=== PATIENT | male | born 1945 | race Caucasian/White ===

== ENCOUNTER 2017-03-18 19:41 | Inpatient (IN) | payer OTHER ==
[~2017-03-18] VITALS: Ht 162.6 cm; Wt 97.5 kg
[~2017-03-18 19:41] MED LIST: LISI10TA2 PO; TAMS-14 PO
[2017-03-18] MEDS ORDERED: CEFEPIME 2GM/50 ML (PMX) 50 ML IVPB STA (21:24)
[2017-03-18] MEDS ORDERED: SODIUM CHLORIDE 0.9% 1L BAG IV* STA (21:24)
[2017-03-18] MEDS ORDERED: VANCOMYCIN 1 GM (PMX) 250 ML IVPB ONE (21:30)
[2017-03-18] MEDS ORDERED: ACETAMINOPHEN 325 MG TAB PO ONE (21:30)
[2017-03-18] MEDS ORDERED: METO50TA16 PO (22:08)
[2017-03-18] MEDS ORDERED: LOSA100T7 PO (22:08)
[2017-03-18] MEDS ORDERED: FINA5TAB4 PO (22:09)
[2017-03-18] MEDS ORDERED: SITA50TA2 PO (22:09)
[2017-03-18] MEDS ORDERED: EZET10TA3 PO (22:09)
--- NOTE | 2017-03-18 22:09 | RADRPT ---
PROCEDURE: Portable chest x-ray. CLINICAL INDICATION: Sepsis. TECHNIQUE: Portable AP view of the chest. COMPARISON: None. FINDINGS: No pulmonary edema or conolidation is identified. The cardiac silhouette is magnified. No pleural effusion is seen. There is no pneumothorax. IMPRESSION: 1. No evidence of acute cardiopulmonary disease. RPTAT: HTAR .Max Briones MD, MD Date Time Electronically viewed and signed by .Max Briones MD, on 03/18/2017 22:09 .R/
[2017-03-18] MEDS ORDERED: ICOS1CAP PO (22:10)
[2017-03-18 22:15] LABS: ADD UMIC YES; UR ASCORBIC ACID NEGATIVE (NEGATIVE); UR BACTERIA FEW /HPF (NONE SEEN); UR BILIRUBIN (Dip) NEGATIVE (NEGATIVE); UR BLOOD (Dip) 1+ mg/dL (NEGATIVE); UR CLARITY CLOUDY (CLEAR); UR COLOR AMBER (YELLOW); UR GLUCOSE (Dip) NEGATIVE (NEGATIVE); UR KETONES (Dip) NEGATIVE (NEGATIVE); UR LEUKOCYTE ESTERASE (Dip) 3+ Leu/ul (NEGATIVE); UR MUCUS FEW /HPF (NONE SEEN); UR NITRITE (Dip) POSITIVE (NEGATIVE); UR RBC 13 /HPF (0-5); UR SPECIFIC GRAVITY (Dip) 1.018 (1.003-1.030); UR TOTAL PROTEIN (Dip) 2+ mg/dl (NEGATIVE); UR UROBILINOGEN (Dip) NEGATIVE (NEGATIVE); UR WBC CLUMPS FEW /HPF (NONE SEEN)
[2017-03-18 22:22] LABS: ABNORMAL IP MESSAGE 1; HEMATOCRIT 41.1 % (42.0-52.0); HEMOGLOBIN 13.9 g/dl (14.0-18.0); MEAN CORPUSCULAR HEMOGLOBIN 30.5 pg (29.0-33.0); MEAN CORPUSCULAR HGB CONC 33.8 g/dl (32.0-37.0); MEAN CORPUSCULAR VOLUME 90.1 fl (82.0-101.0); PLATELET COUNT 134 10^3/UL (140-415); POSITIVE DIFF @See below; RED BLOOD COUNT 4.56 10^6/ul (4.70-6.10); RED CELL DISTRIBUTION WIDTH 14.1 % (11.5-14.5); WHITE BLOOD COUNT 12.3 10^3/ul (4.8-10.8)
[2017-03-18 22:37] LABS: INR 1.05; PARTIAL THROMBOPLASTIN TIME 28.4 Sec (25.0-35.0); PROTIME 13.7 Sec (12.2-14.2); PT RATIO 1.1
[2017-03-18 22:49] LABS: ALANINE AMINOTRANSFERASE 74 IU/L (13-69); ALBUMIN 3.9 g/dl (3.3-4.9); ALKALINE PHOSPHATASE 113 IU/L (42-121); ANION GAP 18 (8-16); ASPARTATE AMINO TRANSFERASE 114 IU/L (15-46); BILIRUBIN,INDIRECT 0.4 mg/dl (0-1.1); BILIRUBIN,TOTAL 0.4 mg/dl (0.2-1.3); BLOOD UREA NITROGEN 32 mg/dl (7-20); CALCIUM 9.2 mg/dl (8.4-10.2); CARBON DIOXIDE 19 mmol/L (21-31); CHLORIDE 112 mmol/L (97-110); CREATININE 2.04 mg/dl (0.61-1.24); GLUCOSE 122 mg/dl (70-220); SODIUM 145 mmol/L (135-144); TOTAL PROTEIN 6.9 g/dl (6.1-8.1)
[2017-03-18 23:13] LABS: TROPONIN-I < 0.012 ng/ml (0.00-0.12)
--- NOTE | 2017-03-18 23:13 | ERA ---
ER Documentation Chief Complaint Date/Time DATE: 03/18/17 TIME: 23:10 Chief Complaint Low BP when they checked at home x1 HPI Patient is a 71-year-old male with diabetes and BPH who presents with low blood pressure. He also had "trouble breathing". His blood pressure was 70/40 at home per the family. The niece told him to go to the emergency department. He felt short of breath and clammy. He was "seeing clouds". He had a fever in the ER. He feels generally weak and tired. He has a mild cough. He has frequency of urination and has had UTI in the past. ROS All systems reviewed and are negative except as per history of present illness. Medications Home Meds Reported Medications Icosapent Ethyl (VASCEPA) 1 Gm Capsule, 2 GM PO TID, CAP 03/18/17 Sitagliptin* (Januvia*) 50 Mg Tablet, 50 MG PO DAILY, #30 TAB 03/18/17 Ezetimibe* (Zetia*) 10 Mg Tablet, 10 MG PO DAILY, TAB 03/18/17 Finasteride* (Finasteride*) 5 Mg Tablet, 5 MG PO DAILY, TAB 03/18/17 Losartan Potassium* (Losartan Potassium*) 100 Mg Tablet, 100 MG PO DAILY, TAB 03/18/17 Metoprolol Succinate* (Toprol XL*) 50 Mg Tab.er.24h, 50 MG PO QHS, #30 TAB 03/18/17 Tamsulosin Hcl* (Flomax*) 0.4 Mg Cap.sr.24h, 0.4 MG PO DAILY 04/13/11 Discontinued Reported Medications Lisinopril* (Lisinopril*) 10 Mg Tablet, 10 MG PO DAILY 04/13/11 Allergies Allergies: Coded Allergies: No Known Drug Allergy (Verified Allergy, Unknown, 03/18/17) PMhx/Soc History of Surgery: Yes (hernia sx) Anesthesia Reaction: No Hx Neurological Disorder: No Hx Respiratory Disorders: No Hx Cardiac Disorders: No Hx Psychiatric Problems: No Hx Miscellaneous Medical Probl: No Hx Alcohol Use: No Hx Substance Use: No Hx Tobacco Use: No Smoking Status: Never smoker FmHx Family History: diabetes Physical Exam Vitals Vital Signs Date Time Temp Pulse Resp B/P Pulse Ox O2 Delivery O2 Flow Rate FiO2 03/18/17 20:00 100.1 92 20 102/55 96 Physical Exam Const: Mild distress Head: Atraumatic Eyes: Normal Conjunctiva ENT: Normal External Ears, Nose and Mouth. Neck: Full range of motion..~ No meningismus. Resp: Clear to auscultation bilaterally Cardio: Regular rate and rhythm, no murmurs Abd: Soft, non tender, non distended. Normal bowel sounds Skin: No petechiae or rashes Back: No midline or flank tenderness Ext: No cyanosis, or edema Neur: Awake and alert Psych: Normal Mood and Affect Result Diagram: 03/18/172204 Results 24 hrs Laboratory Tests Test 03/18/17 21:28 03/18/17 22:05 Urine Color EVAN Urine Clarity CLOUDY Urine pH 5.0 Urine Specific [place] 1.018 Urine Ketones NEGATIVEmg/dL Urine Nitrite POSITIVEmg/dL Urine Bilirubin NEGATIVEmg/dL Urine Urobilinogen NEGATIVEmg/dL Urine Leukocyte Esterase 3+Kristin/ul Urine Microscopic RBC 13/HPF Urine Microscopic WBC 55/HPF Urine Bacteria FEW/HPF Urine Mucus FEW/HPF Urine Hemoglobin 1+mg/dL Urine Glucose NEGATIVEmg/dL Urine Total Protein 2+mg/dl White Blood Count 12.310^3/ul Red Blood Count 4.5610^6/ul Hemoglobin 13.9g/dl Hematocrit 41.1% Mean Corpuscular Volume 90.1fl Mean Corpuscular Hemoglobin 30.5pg Mean Corpuscular Hemoglobin Concent 33.8g/dl Red Cell Distribution Width 14.1% Platelet Count 97262^3/UL Mean Platelet Volume 12.0fl Neutrophils % % Lymphocytes % % Monocytes % % Eosinophils % % Basophils % % Nucleated Red Blood Cells % 0.0/100WBC Neutrophils # 10^3/ul Lymphocytes # 10^3/ul Monocytes # 10^3/ul Eosinophils # 10^3/ul Basophils # 10^3/ul Nucleated Red Blood Cells # 10^3/ul Prothrombin Time 13.7Sec Prothrombin Time Ratio 1.1 INR International Normalized Ratio 1.05 Activated Partial Thromboplast Time 28.4Sec Current Medications Medications (Trade) Dose Ordered Sig/Partha Route PRN Reason Start Time Stop Time Status Last Admin Dose Admin Sodium Chloride 3020 ml 3,020 ml BOLUS OVER 2 HOURS STAT IV* 03/18/17 21:24 03/18/17 21:26 DC 03/18/17 22:02 Cefepime HCl 50 ml @ 100 mls/hr ONCE STAT IVPB 03/18/17 21:24 03/18/17 21:53 DC 03/18/17 22:02 Vancomycin HCl (Vancocin) 250 ml @ 125 mls/hr ONCE ONCE IVPB 03/18/17 21:30 03/18/17 23:29 03/18/17 22:51 Acetaminophen (Tylenol Tab) 650 mg ONCE ONCE PO 03/18/17 21:30 03/18/17 21:31 DC 03/18/17 22:02 Ondansetron HCl (Zofran Inj) 4 mg BRIDGE ORDER PRN IV NAUSEA AND/OR VOMITING 03/18/17 23:30 03/19/17 23:29 Acetaminophen (Tylenol Tab) 650 mg ER BRIDGE PRN PO MILD PAIN/FEVER 03/18/17 23:30 03/19/17 23:29 Procedures/MDM Chest x-ray negative per radiology. EKG read by me: Rate/Rhythm: Regular rate and rhythm at a rate of 87 Intervals: Normal Impression: No evidence of ischemia or arrhythmia Admit MDM: Patient's infectious symptoms have not stabilized and the patient is at risk of rapid decompensation. The patient will be admitted for careful hydration, antibiotic therapy, and infectious source control. Severe Sepsis criteria: Infectious source: Cystitis End organ damage indicated by: No end organ damage at this time Sepsis Management: Time of recognition of sepsis: 2127 Within 3 hours of recognition: Blood cultures x 2 before broad-spectrum antibiotics: Yes 30 ml/kg NS bolus Completed Initial lactate pending Repeat lactate pending Time of recognition of septic shock: No septic shock Septic Shock Assessment: Any lactic acid > 4.0 No Persistent hypotension (SBP < 90 or 40 mmHg drop, MAP < 65) despite 30 mL/kg IV fluid bolus No Volume Re-assessment for Septic Shock (post 30 ml/kg bolus): No septic shock at this time Persistent Hypotension Treatment: Comfort care No Central line Not Required Vasopressor started Not required I considered further perfusion assessment with CVP measurement, SCVO2, bedside ultrasound volume assessment, passive leg raise, trial of further fluid bolus. And proceeded with 30 ml/kg fluid bolus of NSS, broad spectrum antibiotics, and admission. Accepting Care Team Current data and ongoing care discussed. Admitting Physician: Dr. Quiñones of the panel team as the patient has [employer] insurance claims examiner(s): None Outstanding Data: Culture results and lactic acid 2 Critical Care: Critical care time 35 minutes excluding all billable procedures Emergent fluid management while maintaining close respiratory support. Provision of immediate and broad-spectrum antibiotic therapy. Simultaneous assessment for possible sources in order to direct targeted therapy. Consideration for invasive and chemical support to prevent cardiopulmonary collapse. Departure Diagnosis: Primary Impression: Sepsis Qualified Code: A41.9 - Sepsis, due to unspecified organism Additional Impressions: Cystitis Hypotension Qualified Code: I95.9 - Hypotension, unspecified hypotension type Condition: ÁNGEL Case MD Mar 18, 2017 23:13
[2017-03-18 23:15] LABS: NEUTROPHIL # 7.7 10^3/ul (1.6-7.5)
[2017-03-18] MEDS ORDERED: ONDANSETRON 4 MG INJ IV PRN (23:30)
[2017-03-18] MEDS ORDERED: ACETAMINOPHEN 325 MG TAB PO PRN (23:30)
[2017-03-19] MEDS: SOD CHLORIDE 0.9% 1,000 ML IV SCH ×3 (00:13→17:09)
[2017-03-19] MEDS ORDERED: LEVOFLOXACIN 750MG/D5W (PMX) 150 ML IVPB SCH (00:30)
[2017-03-19] MEDS ORDERED: VANCOMYCIN IV PER PHARMACY XX SCH (00:30)
[2017-03-19] MEDS ORDERED: ONDANSETRON 4 MG INJ IV PRN (00:30)
[2017-03-19] MEDS ORDERED: morphine 2 MG INJ IV PRN (00:30)
[2017-03-19] MEDS: FAMOTIDINE 20 MG TAB PO SCH ×2 (00:30→10:42)
[2017-03-19] MEDS ORDERED: ACETAMINOPHEN 325 MG TAB PO PRN (00:30)
[2017-03-19] MEDS ORDERED: NACL 0.9% 3 ML SYG IV SCH (00:30)
--- NOTE | 2017-03-19 03:54 | HP ---
Date/Time of Note Date/Time of Note DATE: 03/19/17 TIME: 03:53 Assessment/Plan VTE Prophylaxis VTE Prophylaxis Intervention: SCD's Assessment/Plan Chief Complaint/Hosp Course This is a 71-year-old male being admitted to the telemetry floor for: #1 Urosepsis: 37% bands. Patient received IV vancomycin and cefepime in the ED. Will continue IV vancomycin and switch to Levaquin IV. Patient's initial lactate is 2.8 we will continue to trend this. Elevated white blood cell count of 12.3. Patient has a history of BPH, he over at the current time is able to urinate. If we do notice that he is not able to properly urinate will likely need a Juares catheter. Will maintain IV fluid hydration and monitor blood pressures in the setting of sepsis. #2 lactic acidosis: This likely secondary to #1. Will continue to trend lactate levels. Will provide IV fluid hydration. See #1 #3 mild transaminitis: Could be secondary to patient's home medications. We will repeat liver function tests in the a.m. If they remain elevated will order right upper quadrant ultrasound. #4 hypertension: At the current time will hold patient's blood pressure medication secondary to concern for hypotension in the setting of sepsis and lactic acidosis. #5 diabetes mellitus: We will put patient on insulin sliding scale. Will patient hold patient's home diabetes medications. Will check hemoglobin A1c. #6 BPH: The current time will hold Flomax and finasteride in the setting of possible risk for hypotension. If patient does experience trouble urinating will likely need a Juares catheter inserted. #7 questionable history of hypothyroidism: There is no medications for his thyroid on his medical reconciliation. Will check a TSH level. #8 hyperlipidemia: We will hold patient's as a temporary right now, patient does have elevated transaminitis unknown if this is contributing to that. May need a right upper quadrant ultrasound if on repeat blood work in the morning there remains transaminitis per #9 DVT and GI prophylaxis: SCDs, acid gato Further treatment strategy will be implemented as per the clinical course Problems: HPI/ROS Admit Date/Time Admit Date/Time Hx of Present Illness Chief complaint: Low blood pressure This is a 71-year-old male with diabetes and BPH who presents with low blood pressure. She was obtained from the ED physician documentation as well as mild examination. He also had "trouble breathing". His blood pressure was 70/40 at home per the family. The niece told him to go to the emergency department. He felt short of breath and clammy. He was "seeing clouds". He had a fever in the ER. He feels generally weak and tired. He has a mild cough. He has frequency of urination and has had UTI in the past. Patient also has a history of weak urinary stream secondary to his BPH. Allergies: NKDA Occasions: See IDRIS GUTIERREZ Const: As per HPI Eyes : No pain discharge or redness or change in visual acuity ENT: No pain, sore throat, congestion, congestion, dysphagia or discharge Respiratory: No shortness of breath, cough, sputum, wheezing, or pleuritic pain Cardiovascular: No chest pain, palpitation, PND, or edema GI : no change in appetite, abdominal pain, nausea, vomiting, diarrhea, constipation, or change in the color his stool Genitourinary: As per HPI Musculoskeletal: No joint pain, back pain, neck pain, restricted range of motion in neck or joints Skin: No rash, bruising or hives Neuro: As per HPI Endocrine: No polyuria, polydipsia, temperature intolerance Psych: No hallucination, depression, anxiety or suicidal ideation PMH/Family/Social Past Medical History Hypertension, diabetes, hyperlipidemia, BPH, hypothyroid Past Surgical History Umbilical hernia repair Family History Significant Family History: hypertension (Mom) Social History Alcohol Use: none Smoking Status: Never smoker Drug Use: none Exam/Review of Systems Vital Signs Vitals Vital Signs Date Time Temp Pulse Resp B/P Pulse Ox O2 Delivery O2 Flow Rate FiO2 03/19/17 03:30 98.3 88 25 114/62 97 Nasal Cannula 2.0 Exam Exam General: Patient is a obese male lying in bed in no acute distress. HEENT: Atraumatic, normocephalic. The pupils are equal, round and reactive. Extraocular motor are intact Neck: Supple with full range of motion. No rigidity or meningismus Chest: Nontender Lungs: Clear to auscultation bilaterally no crackles rales or wheezing Heart: Normal S1-S2, Regular rhythm and rate. No overt murmurs appreciated Abdomen: Soft , nontender, nondistended , bowel sounds are present. No guarding no rebound tenderness , No costovertebral temporal angle mass Extremities: Normal to inspection, no edema no cyanosis Neurologic: Normal mental status, speech normal, cranial nerves II through XII are intact, motor and sensory are intact, no focal weakness Additional Comments PROCEDURE: Portable chest x-ray. CLINICAL INDICATION: Sepsis. TECHNIQUE: Portable AP view of the chest. COMPARISON: None. FINDINGS: No pulmonary edema or conolidation is identified. The cardiac silhouette is magnified. No pleural effusion is seen. There is no pneumothorax. IMPRESSION: 1. No evidence of acute cardiopulmonary disease. RPTAT: HTAR .Max Briones MD, MD Date Time Electronically viewed and signed by .Max Briones MD, MD on 03/18/2017 22:09 .R/ Labs Result Diagram: 03/18/17220403/18/172204 Medications Medications Current Medications Sodium Chloride (NS) 1,000 ml @ 125 mls/hr Q8H IV Last administered on 00:13; Admin Dose 125 MLS/HR; Start 03/19/17 at 00:13 Ondansetron HCl (Zofran Inj) 4 mg Q6H PRN IV NAUSEA AND/OR VOMITING; Start 06/25 at 00:30 Acetaminophen (Tylenol Tab) 650 mg Q6H PRN PO PAIN LEVEL 1-3 OR FEVER; Start at 00:30 Morphine Sulfate (morphine) 2 mg Q4H PRN IV SEVERE PAIN LEVEL 7-10; Start 03/19 at 00:30 Famotidine (Pepcid) 20 mg DAILY PO Last administered on 03/19/17 00:30; Admin Dose 20 MG; Start 03/19/17 at 00:30 Tamsulosin HCl 0.4 mg 0.4 mg HS PO ; Start 03/19/17 at 21:00 Levofloxacin/ Dextrose 150 ml @ 100 mls/hr Q48H IVPB ; Start 03/19/17 at 00:30 Vancomycin HCl/ Sodium Chloride (Vancocin/NS) 250 ml @ 83.333 mls/ hr Q48H IVPB ; Start 03/19/17 at 22:00 OTILIA BESS Mar 19, 2017 03:54
[2017-03-19 06:05] LABS: ABNORMAL IP MESSAGE 1; BASOPHIL # 0.1 10^3/ul (0.0-0.1); BASOPHILS % 0.3 % (0.0-2.0); HEMATOCRIT 34.7 % (42.0-52.0); HEMOGLOBIN 11.9 g/dl (14.0-18.0); LYMPHOCYTES # 0.5 10^3/ul (0.8-2.9); LYMPHOCYTES % 2.2 % (15.0-51.0); MEAN CORPUSCULAR HEMOGLOBIN 31.2 pg (29.0-33.0); MEAN CORPUSCULAR HGB CONC 34.3 g/dl (32.0-37.0); MEAN CORPUSCULAR VOLUME 91.1 fl (82.0-101.0); MONOCYTE # 0.8 10^3/ul (0.3-0.9); MONOCYTES % 3.2 % (0.0-11.0); NEUTROPHIL # 23.2 10^3/ul (1.6-7.5); PLATELET COUNT 125 10^3/UL (140-415); POSITIVE DIFF @See below; RED BLOOD COUNT 3.81 10^6/ul (4.70-6.10); RED CELL DISTRIBUTION WIDTH 14.4 % (11.5-14.5); WHITE BLOOD COUNT 24.9 10^3/ul (4.8-10.8)
[2017-03-19 06:11] VITALS: TEMP 98.3
[2017-03-19 06:34] LABS: NEUTROPHILS % 93.3 % (39.0-77.0)
[2017-03-19 06:56] LABS: ALBUMIN 2.8 g/dl (3.3-4.9); ALBUMIN/GLOBULIN RATIO 1.12; BILIRUBIN,INDIRECT 0.2 mg/dl (0-1.1); BILIRUBIN,TOTAL 0.2 mg/dl (0.2-1.3); CALCIUM 7.9 mg/dl (8.4-10.2); CHOL/HDL RATIO 3.9 RATIO; CREATININE 1.77 mg/dl (0.61-1.24); MAGNESIUM 1.5 mg/dl (1.7-2.5); POTASSIUM 4.5 mmol/L (3.5-5.1); TOTAL PROTEIN 5.3 g/dl (6.1-8.1)
[2017-03-19 06:58] VITALS: Ht 162.6 cm; Wt 97.5 kg
[2017-03-19 06:59] VITALS: BP 130/67; PULSE 81; RESP 18
[2017-03-19 07:04] LABS: THYROID STIMULATING HORMONE 1.52 MIU/L (0.465-4.680)
[2017-03-19] MEDS ORDERED: BARIUM SULF 2% 450 ML BTL (BERRY SMOOTHIE) PO ONE (09:00)
--- NOTE | 2017-03-19 11:05 | RADRPT ---
PROCEDURE: CT Abdomen and Pelvis without contrast. CLINICAL INDICATION: Abdominal pain. TECHNIQUE: CT scan of the abdomen and pelvis without contrast was performed on a multidetector hig h-resolution CT scanner. The patient was scanned without intravenous contrast. Coronal and sagittal reformatted images were obtained from the axial source images. Images were reviewed on a high-resol [employer] PACS workstation. One or more of the following dose reduction techniques were used: Automated exposure control, adjustment of the mA and/or kV according to patient size, use of iterative recon struction technique. The total exam CTDI equals 20.59 mGy and the total exam DLP equals 1383.32 mGy -cm. COMPARISON: Urosepsis. FINDINGS: CT abdomen: The lung bases are clear. The heart size is normal, without pericardial thickening or effusion. The liver is normal in size and diffusely hypoattenuating without focal mass or intrahepatic biliary dilatation. The spleen is normal in size and homogeneous in density. The stomach is grossly unrem arkable. The pancreas as visualized is normal. Small stones are seen layering dependently within t he gallbladder. There is no evidence of gallbladder wall edema or pericholecystic inflammation. Th e biliary tree is unremarkable and there is no evidence for biliary dilatation. The adrenal glands are symmetric and normal. Scattered bilateral hypodense lesions are present measuring up to 4 cm at the inferior pole of the left kidney. Scattered renal cortical calcifications are also present. Th ere is moderate bilateral perinephric fat stranding which may be related to senescent change. There is no evidence of ureteral calculi or obstructive uropathy. No obstructive uropathy or mass lesion is seen. There is focal fusiform dilatation of the infrarenal abdominal aorta which measures 2.7 cm in diamet er compared to the adjacent aortic diameter of 2 cm. The aorta is otherwise of normal caliber. Mode rate aortoiliac atherosclerotic calcifications are present. There is no retroperitoneal lymphadenopa thy. The erick hepatis region is clear. The small bowel and mesentery, as visualized, are unremark able. Numerous diverticula are present throughout the descending and sigmoid colon without evidence of acute diverticulitis. CT pelvis: The small bowel loops situated within the pelvis are unremarkable. The prostate gland measures 5.1 x 5.6 x 5.5 cm and indents the posterior urinary bladder wall. The urinary bladder is partially deco mpressed and otherwise grossly unremarkable. The pelvic sidewalls and inguinal regions are clear. The appendix is normal. No mass, lymphadenopathy, or free fluid is seen. There is a small fat-cont aining left inguinal hernia. Penile calcifications are noted along the tunica albuginea. The septu m appears relatively spared. Advanced degenerative enthesopathy is present throughout the lumbar spine, worst at L2-L5 with assoc iated severe central canal stenosis at these levels secondary to posterior disk bulges, ligamentum f lavum hypertrophy, and facet arthropathy. There is also associated severe bilateral neural foramina l stenosis at L3-L4 and severe right-sided neural foraminal stenosis L4-L5. There is also grade 1 a nterolisthesis of L4-L5 with associated chronic right-sided pars defect at this level. No osteolyti c or osteoblastic lesion is detected. IMPRESSION: 1. Symmetric bilateral moderate perinephric fat stranding which may be related to senescent change versus acute inflammation in the setting of pyelonephritis. Recommend correlation with urinary anal ysis. Otherwise, no evidence of acute abdominopelvic acute inflammatory process. 2. Cholelithiasis without evidence of cholecystitis. 3. Diverticulosis without evidence of diverticulitis. 4. Prostatomegaly. Correlate with free/found PSA. 5. Scattered bilateral hypodense renal lesions likely representing cysts. 6. Hepatic steatosis. 7. Moderate aortoiliac atherosclerosis. 8. Advanced lumbar degenerate enthesopathy with severe multilevel central canal and bilateral neura l foraminal stenosis as detailed above. 9. Small fat-containing left inguinal hernia. 10. Focal nonaneurysmal fusiform dilatation of the infrarenal abdominal aorta, measuring 2.7 cm. 11. Penile calcifications along the tunica albuginea with relative sparing of the septum. The find ings are concerning for Peyronie's disease which may be seen with fibromatoses, diabetes, beta-block er use, or penile trauma. RPTAT: JJ .Manjinder Weinberg MD, Date Time Electronically viewed and signed by .Manjinder Weinberg MD, on 03/19/2017 11:04 .A/
[2017-03-19 15:15] VITALS: BP 109/62; PULSE 76; RESP 12
[2017-03-19 15:50] VITALS: BP 121/56; RESP 16
--- NOTE | 2017-03-19 17:05 | PN ---
Date/Time of Note Date/Time of Note DATE: 03/19/17 TIME: 16:58 Assessment/Plan VTE Prophylaxis VTE Prophylaxis Intervention: SCD's Assessment/Plan Assessment/Plan 71 yo M with pmhx BPH admitted for feeling unwell found to have sepsis 2/2 gram negative [place] pyelonephritis with resultant bacteremia. Also with PEPPER #pyelo with resultant bacteremia -cont empiric levoflox pending further culture data #PEPPER suspect 2/2 sepsis -cont IVFs -hold home ARB #BPH: cont flomax and finasteride #HTN: cont bb, hold ARB as above #HL: cont zetia #DM2: a1c 6s. accuchecks and SSI #renal cysts: check US #incidental finding of Pyeronines on US: f/u with PCP Subjective 24 Hr Interval Summary Free Text/Dictation Pt wondering how long he'll be in the hospital Exam/Review of Systems Vital Signs Vitals Vital Signs Date Time Temp Pulse Resp B/P Pulse Ox O2 Delivery O2 Flow Rate FiO2 03/19/17 15:15 97.7 76 12 109/62 98 Room Air 03/19/17 06:11 2.0 Exam nad no mrg lungs clear abd soft minimal CVA tenderness on R only no rashes urine and blood with GNRs, CT notable for bl pyelo 1. Symmetric bilateral moderate perinephric fat stranding which may be related to senescent change versus acute inflammation in the setting of pyelonephritis. Recommend correlation with urinary analysis. Otherwise, no evidence of acute abdominopelvic acute inflammatory process. 2. Cholelithiasis without evidence of cholecystitis. 3. Diverticulosis without evidence of diverticulitis. 4. Prostatomegaly. Correlate with free/found PSA. 5. Scattered bilateral hypodense renal lesions likely representing cysts. 6. Hepatic steatosis. 7. Moderate aortoiliac atherosclerosis. 8. 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 9. Small fat-containing left inguinal hernia. 10. Focal nonaneurysmal fusiform dilatation of the infrarenal abdominal aorta, measuring 2.7 cm. 11. Penile calcifications along the tunica albuginea with relative sparing of the septum. The findings are concerning for Peyronie's disease which may be seen with fibromatoses, diabetes, beta-gato use, or penile trauma. Results Result Diagram: 03/19/17 0538 03/19/17 0538 Results 24 hrs Laboratory Tests Test 03/18/17 21:28 03/18/17 22:05 03/19/17 00:38 03/19/17 05:38 Urine Color EVAN Urine Clarity CLOUDY A Urine pH 5.0 Urine Specific [place] 1.018 Urine Ketones NEGATIVE Urine Nitrite POSITIVE A Urine Bilirubin NEGATIVE Urine Urobilinogen NEGATIVE Urine Leukocyte Esterase 3+ H Urine Microscopic RBC 13 H Urine Microscopic WBC 55 H Urine Bacteria FEW A Urine Mucus FEW A Urine Hemoglobin 1+ H Urine Glucose NEGATIVE Urine Total Protein 2+ H White Blood Count 12.3 H 24.9 #H Red Blood Count 4.56 L 3.81 L Hemoglobin 13.9 L 11.9 L Hematocrit 41.1 L 34.7 L Mean Corpuscular Volume 90.1 91.1 Mean Corpuscular Hemoglobin 30.5 31.2 Mean Corpuscular Hemoglobin Concent 33.8 34.3 Red Cell Distribution Width 14.1 14.4 Platelet Count 134 L 125 L Mean Platelet Volume 12.0 H 12.0 H Neutrophils % 93.3 H Segmented Neutrophils % (Manual) 63 Band Neutrophils % (Manual) 37 H Lymphocytes % 2.2 L Monocytes % 3.2 Eosinophils % 0.0 Basophils % 0.3 Nucleated Red Blood Cells % 0.0 0.0 Neutrophils # 7.7 H 23.2 H Neutrophils # (Manual) 8.3 H Band Neutrophils # 4.5 H Lymphocytes # 0.5 L Monocytes # 0.8 Eosinophils # 0.0 Basophils # 0.1 Nucleated Red Blood Cells # 0.0 Rouleau 2+ Prothrombin Time 13.7 Prothrombin Time Ratio 1.1 INR International Normalized Ratio 1.05 Activated Partial Thromboplast Time 28.4 Sodium Level 145 H 146 H Potassium Level 4.0 4.5 Chloride Level 112 H 115 H Carbon Dioxide Level 19 L 18 L Anion Gap 18 H 18 H Blood Urea Nitrogen 32 H 30 H Creatinine 2.04 H 1.77 H Glucose Level 122 98 Lactic Acid Level 2.8 *H 1.7 1.2 Calcium Level 9.2 7.9 L Total Bilirubin 0.4 0.2 Direct Bilirubin 0.00 0.00 Indirect Bilirubin 0.4 0.2 Aspartate Amino Transf (AST/SGOT) 114 H 44 # Alanine Aminotransferase (ALT/SGPT) 74 H 53 Alkaline Phosphatase 113 58 Troponin I < 0.012 Total Protein 6.9 5.3 #L Albumin 3.9 2.8 #L Globulin 3.00 2.50 Albumin/Globulin Ratio 1.30 1.12 Hemoglobin A1c 6.1 H Magnesium Level 1.5 L Triglycerides Level 122 Cholesterol Level 91 L LDL Cholesterol, Calculated 44 HDL Cholesterol 23 L Cholesterol/HDL Ratio 3.9 Thyroid Stimulating Hormone (TSH) 1.520 Test 03/19/17 08:51 03/19/17 12:01 Lactic Acid Level 1.5 Bedside Glucose 85 Medications Medications Current Medications Sodium Chloride (NS) 1,000 ml @ 125 mls/hr Q8H IV Last administered on 10:45; Admin Dose 125 MLS/HR; Start 03/19/17 at 00:13 Ondansetron HCl (Zofran Inj) 4 mg Q6H PRN IV NAUSEA AND/OR VOMITING; Start 06/25 at 00:30 Acetaminophen (Tylenol Tab) 650 mg Q6H PRN PO PAIN LEVEL 1-3 OR FEVER; Start at 00:30 Morphine Sulfate (morphine) 2 mg Q4H PRN IV SEVERE PAIN LEVEL 7-10; Start 03/19 at 00:30 Famotidine (Pepcid) 20 mg DAILY PO Last administered on 03/19/17 10:42; Admin Dose 20 MG; Start 03/19/17 at 00:30 Tamsulosin HCl (Flomax) 0.4 mg HS PO ; Start 03/19/17 at 21:00 Levofloxacin (Levaquin) 750 mg DAILY@06 PO ; Start 03/20/17 at 06:00 GREYSON QUINTANA MD Mar 19, 2017 17:05
[2017-03-19] MEDS ORDERED: GLUCOSE GEL 15 GRAM TUBE PO PRN ×2 (17:30)
[2017-03-19] MEDS ORDERED: GLUCOSE GEL 15 GRAM TUBE BUCCAL PRN (17:30)
[2017-03-19] MEDS ORDERED: GLUCAGON 1 MG INJ IM PRN (17:30)
[2017-03-19] MEDS ORDERED: DEXTROSE 50% 50 ML SYRINGE IV PRN ×2 (17:30)
[2017-03-19] MEDS: INSULIN ASPART [NOVOLOG] 3 ML PEN SC SCH ×2 (17:34→21:00)
[2017-03-19] MEDS: [UNRECOGNIZED DRUG - REMARK] XX SCH (18:00)
[2017-03-19 20:00] VITALS: BP 116/55; RESP 19
[2017-03-19] MEDS ORDERED: NON-FORMULARY/PATIENT OWN MED (Icosapent Ethyl (Vascepa) 2 GM) PO SCH (21:00)
[2017-03-19] MEDS: TAMSULOSIN (SR) 0.4 MG CAP PO SCH (21:10)
[2017-03-19] MEDS: METOPROLOL (XL) 50 MG TAB PO SCH (21:14)
[2017-03-19] MEDS ORDERED: VANCOMYCIN 1.25 GM in SOD CHLORIDE 0.9% 250 ML IVPB SCH (22:00)
[2017-03-20 02:00] VITALS: BP 124/66; RESP 18
[2017-03-20] MEDS ORDERED: ACCU-CHEK XX SCH (02:00)
[2017-03-20] MEDS: ACCU-CHEK XX SCH (02:00)
[2017-03-20] MEDS ORDERED: LEVOFLOXACIN 750 MG TABLET PO SCH (06:00)
[2017-03-20] MEDS: SOD CHLORIDE 0.9% 1,000 ML IV SCH ×3 (06:00→16:13)
[2017-03-20 07:00] LABS: CALCIUM 8.1 mg/dl (8.4-10.2); CREATININE 1.65 mg/dl (0.61-1.24); POTASSIUM 4.1 mmol/L (3.5-5.1)
[2017-03-20] MEDS: [UNRECOGNIZED DRUG - REMARK] XX SCH (07:00)
[2017-03-20 07:26] LABS: BASOPHILS % 0.2 % (0.0-2.0); EOSINOPHILS # 0.2 10^3/ul (0.0-0.5); HEMATOCRIT 34.6 % (42.0-52.0); HEMOGLOBIN 11.6 g/dl (14.0-18.0); LYMPHOCYTES # 1.1 10^3/ul (0.8-2.9); LYMPHOCYTES % 5.9 % (15.0-51.0); MEAN CORPUSCULAR HEMOGLOBIN 30.6 pg (29.0-33.0); MEAN CORPUSCULAR HGB CONC 33.5 g/dl (32.0-37.0); MEAN CORPUSCULAR VOLUME 91.3 fl (82.0-101.0); MEAN PLATELET VOLUME 13.3 fl (7.4-10.4); MONOCYTE # 0.9 10^3/ul (0.3-0.9); MONOCYTES % 4.8 % (0.0-11.0); NEUTROPHIL # 16.5 10^3/ul (1.6-7.5); NEUTROPHILS % 86.7 % (39.0-77.0); PLATELET COUNT 120 10^3/UL (140-415); RED BLOOD COUNT 3.79 10^6/ul (4.70-6.10); RED CELL DISTRIBUTION WIDTH 14.6 % (11.5-14.5); WHITE BLOOD COUNT 19.1 10^3/ul (4.8-10.8)
[2017-03-20] MEDS: INSULIN ASPART [NOVOLOG] 3 ML PEN SC SCH ×4 (07:59→21:00)
[2017-03-20 08:00] VITALS: BP 135/71; RESP 18
[2017-03-20 08:06] LABS: ALBUMIN 3.3 g/dl (3.3-4.9); BILIRUBIN,INDIRECT 0.2 mg/dl (0-1.1); BILIRUBIN,TOTAL 0.2 mg/dl (0.2-1.3); TOTAL PROTEIN 6.2 g/dl (6.1-8.1)
[2017-03-20] MEDS: LINAGLIPTIN 5 MG TABLET PO SCH (08:27)
[2017-03-20] MEDS: FINASTERIDE 5 MG TAB PO SCH (08:27)
[2017-03-20] MEDS: EZETIMIBE 10 MG TAB PO SCH (08:27)
[2017-03-20] MEDS ORDERED: LOSARTAN 50 MG TAB PO SCH (09:00)
[2017-03-20] MEDS ORDERED: LIDOCAINE 1% (MPF) 5 ML VIAL SC ONE (09:00)
[2017-03-20] MEDS: CEFTRIAXONE 2 GM/50 ML (PMX) 50 ML IVPB SCH (10:28)
[2017-03-20 14:00] VITALS: BP 152/66; RESP 18
--- NOTE | 2017-03-20 15:06 | RADRPT ---
PROCEDURE: US Renal CLINICAL INDICATION: Renal cysts on CT. TECHNIQUE: Multiple sonographic images of the kidneys and bladder were obtained. Evaluation of th e kidneys and bladder was performed as well with rodney scale and color and Doppler evaluation using a curved array transducer. The images were reviewed on a high-resolution PACS workstation. COMPARISON: CT abdomen pelvis from earlier the same date. FINDINGS: Limitation: Body habitus. The right kidney measures 10.8 x 5.0 x 5.0 cm. The left kidney measures 11.4 x 5.5 x 6.3 cm. Kidneys are echogenic in appearance with mild renal cortical thinning. The large lower pole mass seen on the CT in the left kidney is a 2.1 x 1.8 x 1.7 cm cyst. The smaller lesions in both kidneys are not well demonstrated due to the patient's body habitus. No perinephric fluid collection is seen. Evaluation of the urinary bladder is unremarkable. IMPRESSION: 1. Technically difficult study demonstrating mildly echogenic kidneys with renal cortical thinning consistent with medical renal disease. 2. Suboptimal demonstration of bilateral hyperdense lesions seen on CT. These are likely cysts. F urther evaluation with MRI may be helpful. RPTAT: [facility] Physician Joey Date Time Electronically viewed and signed by Physician Joey on 03/20/2017 15:06 /
--- NOTE | 2017-03-20 16:55 | RADRPT ---
PROCEDURE: XR Chest. CLINICAL INDICATION: PICC line placement TECHNIQUE: PA and lateral chest x-ray. COMPARISON: 03/18/2017 FINDINGS: There has been interval placement right-sided PICC line which terminates in superior vena cava 1.5 c m above the right atrium. The lung volumes are low. There is crowding of the lung markings. No focal consolidation identified. No pleural effusion identified. No evidence of pneumothorax. The heart size is large. The cardiomediastinal silhouette is unremarkable. The soft tissues are within normal limits. Bony structures are unremarkable. IMPRESSION: 1. Interval placement right-sided PICC line satisfactory position. 2. Limited exam due to low lung volumes with crowding of pulmonary markings and large cardiomediast inal contour, likely artifactual. RPTAT: QQ .Ramon Falcon MD, Date Time Electronically viewed and signed by .Ramon Falcon MD, on 03/20/2017 16:54 .M/
--- NOTE | 2017-03-20 17:28 | RADRPT ---
PROCEDURE: Ultrasound guided PICC line placement CLINICAL INDICATION: PICC line placement COMPARISON: None available TECHNIQUE: Real-time high-resolution ultrasound imaging in transverse and longitudinal planes was p erformed in the upper arm to evaluate venous size and location for needle insertion during PICC line placement. Pairer images were submitted for interpretation. FINDINGS: Focused ultrasound imaging of the upper arm was performed for placement of PICC line. No radiologist was present for the procedure. No diagnosis was made from the images. IMPRESSION: 1. Focused ultrasound for placement of PICC line. RPTAT: QQ .Ramon Falcon MD, Date Time Electronically viewed and signed by .Ramon Falcon MD, on 03/20/2017 17:27 .M/
--- NOTE | 2017-03-20 17:51 | PN ---
Date/Time of Note Date/Time of Note DATE: 03/20/17 TIME: 17:48 Assessment/Plan VTE Prophylaxis VTE Prophylaxis Intervention: SCD's Lines/Catheters IV Catheter Type (from Nrsg): PICC Line Central line still needed: Yes Urinary Cath still in place: No Assessment/Plan Assessment/Plan 71 yo M with pmhx BPH admitted for feeling unwell found to have sepsis 2/2 e coli pyelonephritis with resultant bacteremia. Also with PEPPER #pyelo with resultant e coli bacteremia -change levoflox to ceftriaxone given sensitivities -PICC placed #PEPPER suspect 2/2 sepsis -dc IVFs, push PO -hold home ARB #BPH: cont flomax and finasteride #HTN: cont bb, hold ARB as above #HL: cont zetia #DM2: a1c 6s. accuchecks and SSI #renal cysts: US reviewed, will advise pt to get MRI with PCP #incidental finding of Peyronines on US: f/u with PCP DC once HH set up, likely 1-2 days Exam/Review of Systems Vital Signs Vitals Vital Signs Date Time Temp Pulse Resp B/P Pulse Ox O2 Delivery O2 Flow Rate FiO2 03/20/17 14:00 98.7 81 18 152/66 95 03/19/17 15:15 Room Air 03/19/17 06:11 2.0 Intake and Output 03/19/17 03/19/17 03/20/17 15:00 23:00 07:00 Intake Total 1850 ml Balance 1850 ml Results Result Diagram: 03/20/17 0545 03/20/17 0545 Results 24 hrs Laboratory Tests Test 03/19/17 21:17 03/20/17 02:32 03/20/17 05:45 03/20/17 07:38 Bedside Glucose 96 Lactic Acid Level 0.7 White Blood Count 19.1 #H Red Blood Count 3.79 L Hemoglobin 11.6 L Hematocrit 34.6 L Mean Corpuscular Volume 91.3 Mean Corpuscular Hemoglobin 30.6 Mean Corpuscular Hemoglobin Concent 33.5 Red Cell Distribution Width 14.6 H Platelet Count 120 L Mean Platelet Volume 13.3 H Neutrophils % 86.7 H Lymphocytes % 5.9 L Monocytes % 4.8 Eosinophils % 1.0 Basophils % 0.2 Nucleated Red Blood Cells % 0.0 Neutrophils # 16.5 H Lymphocytes # 1.1 Monocytes # 0.9 Eosinophils # 0.2 Basophils # 0.0 Nucleated Red Blood Cells # 0.0 Sodium Level 142 Potassium Level 4.1 Chloride Level 117 H Carbon Dioxide Level 16 L Anion Gap 13 Blood Urea Nitrogen 29 H Creatinine 1.65 H Glucose Level 94 Calcium Level 8.1 L Total Bilirubin 0.2 Direct Bilirubin 0.00 Indirect Bilirubin 0.2 Aspartate Amino Transf (AST/SGOT) 33 Alanine Aminotransferase (ALT/SGPT) 50 Alkaline Phosphatase 65 Total Protein 6.2 Albumin 3.3 Test 03/20/17 07:52 03/20/17 12:08 03/20/17 17:04 Bedside Glucose 94 88 86 Medications Medications Current Medications Sodium Chloride (NS) 1,000 ml @ 125 mls/hr Q8H IV Last administered on 13:05; Admin Dose 125 MLS/HR; Start 03/19/17 at 00:13 Ondansetron HCl (Zofran Inj) 4 mg Q6H PRN IV NAUSEA AND/OR VOMITING; Start 06/25 at 00:30 Acetaminophen (Tylenol Tab) 650 mg Q6H PRN PO PAIN LEVEL 1-3 OR FEVER; Start at 00:30 Morphine Sulfate (morphine) 2 mg Q4H PRN IV SEVERE PAIN LEVEL 7-10; Start 03/19 at 00:30 Tamsulosin HCl (Flomax) 0.4 mg HS PO Last administered on 03/19/17 21:10; Admin Dose 0.4 MG; Start 03/19/17 at 21:00 EZETIMIBE (Zetia) 10 mg DAILY PO Last administered on 03/20/17 08:27; Admin Dose 10 MG; Start 03/20/17 at 09:00 Finasteride (Proscar) 5 mg DAILY PO Last administered on 03/20/17 08:27; Admin Dose 5 MG; Start 03/20/17 at 09:00 Metoprolol Succinate (Toprol Xl) 50 mg QHS PO Last administered on 03/19/17 21 :14; Admin Dose 50 MG; Start 03/19/17 at 21:00 Linagliptin (Tradjenta) 5 mg DAILY PO Last administered on 03/20/17 08:27; Admin Dose 5 MG; Start 03/20/17 at 09:00 Diagnostic Test (Pha) (Accu-Chek) 1 ea 02 XX ; Start 03/20/17 at 02:00 Miscellaneous Information 1 ea NOTE XX ; Start 03/19/17 at 17:30 Glucose (Glutose) 15 gm Q15M PRN PO DECREASED GLUCOSE; Start 03/19/17 at 17:30 Glucose (Glutose) 22.5 gm Q15M PRN PO DECREASED GLUCOSE; Start 03/19/17 at 17: 30 Dextrose (D50w Syringe) 25 ml Q15M PRN IV DECREASED GLUCOSE; Start 03/19/17 at 17:30 Dextrose (D50w Syringe) 50 ml Q15M PRN IV DECREASED GLUCOSE; Start 03/19/17 at 17:30 Glucagon (Glucagen) 1 mg Q15M PRN IM DECREASED GLUCOSE; Start 03/19/17 at 17:30 Glucose 15 gm 15 gm Q15M PRN BUCCAL DECREASED GLUCOSE; Start 03/19/17 at 17:30 Ceftriaxone Sodium (Rocephin) 50 ml @ 100 mls/hr Q24H IVPB Last administered on 03/20/17t 10:28; Admin Dose 100 MLS/HR; Start 03/20/17 at 09:00 IV Flush (NS 10 ml) 10 ml PRN PRN IV FLUSH LINE; Start 03/20/17 at 18:00 GREYSON QUINTANA MD Mar 20, 2017 17:51
[2017-03-20] MEDS: TAMSULOSIN (SR) 0.4 MG CAP PO SCH (21:39)
[2017-03-20] MEDS: METOPROLOL (XL) 50 MG TAB PO SCH (21:40)
[2017-03-21 02:00] VITALS: BP 178/86; RESP 18
[2017-03-21] MEDS: ACCU-CHEK XX SCH (02:00)
[2017-03-21] MEDS ORDERED: hydrALAzine 20 MG INJ IV PRN (04:00)
[2017-03-21 05:04] VITALS: BP 154/72; PULSE 73
[2017-03-21] MEDS ORDERED: hydrALAzine 20 MG INJ ONE (05:43)
[2017-03-21 06:42] LABS: CALCIUM 9.1 mg/dl (8.4-10.2); CREATININE 1.39 mg/dl (0.61-1.24); POTASSIUM 4.3 mmol/L (3.5-5.1)
[2017-03-21] MEDS: INSULIN ASPART [NOVOLOG] 3 ML PEN SC SCH ×2 (07:53→11:28)
[2017-03-21] MEDS: CEFTRIAXONE 2 GM/50 ML (PMX) 50 ML IVPB SCH (08:20)
[2017-03-21] MEDS: FINASTERIDE 5 MG TAB PO SCH (08:21)
[2017-03-21] MEDS: EZETIMIBE 10 MG TAB PO SCH (08:21)
[2017-03-21] MEDS: LINAGLIPTIN 5 MG TABLET PO SCH (08:21)
[2017-03-21 09:05] VITALS: BP 153/74; RESP 16
[2017-03-21] MEDS ORDERED: CEFT2FRO2 IV (10:34)
--- NOTE | 2017-03-21 10:42 | PDOCDIS ---
Discharge Instructions CONDITION Patient Condition: Stable HOME CARE INSTRUCTIONS: Special Diet: 1800 ada,2 gm na ACTIVITY: Activity Restrictions: No Restrictions FOLLOW UP/APPOINTMENTS Follow-up Plan Follow up with your regular doctor this week Follow up with a urologist through [facility] GREYSON QUINTANA MD Mar 21, 2017 10:42
--- NOTE | 2017-03-21 11:02 | DS ---
Date/Time of Note Date/Time of Note DATE: 03/21/17 TIME: 10:59 Discharge Summary Admission/Discharge Info Admit Date/Time Mar 18, 2017 at 23:02 Discharge Date/Time Discharge Diagnosis sepsis from pyelonephritis with EColi, acute kidney injury Patient Condition: Stable Consults none Procedures Urine and blood cultures 8.10 Organism 1 ESCHERICHIA COLI E COLI M.I.C. RX --------- --- AMPICILLIN <=2 S CEFAZOLIN R CEFOTAXIME S CIPROFLOXACIN >=4 R GENTAMICIN <=1 S LEVOFLOXACIN >=8 R TOBRAMYCIN <=1 S TRIMETHOPRIM/SULFAMETHOXAZOLE >=320 R Surveillence blood cultures 8.[address] AP IMPRESSION: 1. Symmetric bilateral moderate perinephric fat stranding which may be related to senescent change versus acute inflammation in the setting of pyelonephritis. Recommend correlation with urinary analysis. Otherwise, no evidence of acute abdominopelvic acute inflammatory process. 2. Cholelithiasis without evidence of cholecystitis. 3. Diverticulosis without evidence of diverticulitis. 4. Prostatomegaly. Correlate with free/found PSA. 5. Scattered bilateral hypodense renal lesions likely representing cysts. 6. Hepatic steatosis. 7. Moderate aortoiliac atherosclerosis. 8. 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 9. Small fat-containing left inguinal hernia. 10. Focal nonaneurysmal fusiform dilatation of the infrarenal abdominal aorta, measuring 2.7 cm. 11. Penile calcifications along the tunica albuginea with relative sparing of the septum. The findings are concerning for Peyronie's disease which may be seen with fibromatoses, diabetes, beta-gato use, or penile trauma. MARIA 8.11 IMPRESSION: 1. Technically difficult study demonstrating mildly echogenic kidneys with renal cortical thinning consistent with medical renal disease. 2. Suboptimal demonstration of bilateral hyperdense lesions seen on CT. These are likely cysts. Further evaluation with MRI may be helpful. PICC placed 8.12.17 Hx of Present Illness Chief complaint: Low blood pressure This is a 71-year-old male with diabetes and BPH who presents with low blood pressure. She was obtained from the ED physician documentation as well as mild examination. He also had "trouble breathing". His blood pressure was 70/40 at home per the family. The niece told him to go to the emergency department. He felt short of breath and clammy. He was "seeing clouds". He had a fever in the ER. He feels generally weak and tired. He has a mild cough. He has frequency of urination and has had UTI in the past. Patient also has a history of weak urinary stream secondary to his BPH. Allergies: NKDA Occasions: See OCT Hospital Course Pt admitted for sepsis. Urine and blood cultures grew out same strain of EColi. CT with evidence of pyelonephritis. Pt's sepsis was 2/2 pyelonephritis from EColi infection with resultant bacteremia. Given bacteremia, pt needs 2 weeks of antibiotics. Unfortunately, pt's EColi strain was R to quinolones and bactrim , thus he was discharged to complete a 2 week of course IV with ceftriaxone. Pt advised to f/u with PCP for referral for management of BPH which is likely the etiology of his pyelonephritis (urinary outlet obstruction from BPH). Pt with PEPPER likely from sepsis. Cr on admission 2.04, pt given IVFs but even after IVFs stopped Cr down to 1.39 on date of discharge. PCP should recheck Cr at discharge f/u. Renal imaging with also finding of possible cysts, f/u imaging advised. ARB held COPY OF THIS DISCHARGE SUMMARY FAXED TO PCP'S [facility] OFFICE ON DATE OF DISCHARGE. THIS IS A WEEKEND, I WILL PERSONALLY FOLLOW UP THIS WEEK TO ENSURE FAX WAS RECEIVED. Home Meds Reported Medications Icosapent Ethyl (VASCEPA) 1 Gm Capsule, 2 GM PO TID, CAP 03/18/17 Sitagliptin* (Januvia*) 50 Mg Tablet, 50 MG PO DAILY, #30 TAB 03/18/17 Ezetimibe* (Zetia*) 10 Mg Tablet, 10 MG PO DAILY, TAB 03/18/17 Finasteride* (Finasteride*) 5 Mg Tablet, 5 MG PO DAILY, TAB 03/18/17 Losartan Potassium* (Losartan Potassium*) 100 Mg Tablet, 100 MG PO DAILY, TAB 03/18/17 Metoprolol Succinate* (Toprol XL*) 50 Mg Tab.er.24h, 50 MG PO QHS, #30 TAB 03/18/17 Tamsulosin Hcl* (Flomax*) 0.4 Mg Cap.sr.24h, 0.4 MG PO DAILY 04/13/11 Discontinued Reported Medications Lisinopril* (Lisinopril*) 10 Mg Tablet, 10 MG PO DAILY 04/13/11 Follow-up Plan PCP within 7 days outpatient f/u for BPH management, Cr check, consideration of renal imaging Primary Care Provider Narcisa Luis DO Time spent on discharge: > 30 minutes Pending Labs Laboratory Tests Test 03/20/17 12:08 03/20/17 17:04 03/20/17 21:38 03/21/17 04:22 Bedside Glucose 88mg/dL (70-220) 86mg/dL (70-220) 81mg/dL (70-220) Sodium Level 144mmol/L (135-144) Potassium Level 4.3mmol/L (3.5-5.1) Chloride Level 111mmol/L (97-110) Carbon Dioxide Level 19mmol/L (21-31) Anion Gap 18 (8-16) Blood Urea Nitrogen 25mg/dl (7-20) Creatinine 1.39mg/dl (0.61-1.24) Glucose Level 83mg/dl (70-220) Calcium Level 9.1mg/dl (8.4-10.2) Test 03/21/17 07:53 Bedside Glucose 97mg/dL (70-220) Copies To: CC: NARCISA LUIS ELLEN MD Mar 21, 2017 11:02
== END 2017-03-21 13:02 | disposition home health service (06) | DRG 872 ==
LOC: E/R 19:41 → MS3 23:02 → PP2 03-19 15:41
PROVIDERS: ADMIT Family Medicine; ATTEND Family Medicine
DX: A41.9 Sepsis, unspecified organism (principal); N17.9 Acute kidney failure, unspecified; E87.2 Acidosis; N12 Tubulo-interstitial nephritis, not specified as acute or chronic; N40.0 Benign prostatic hyperplasia without lower urinary tract symptoms; N48.89 Other specified disorders of penis; I95.9 Hypotension, unspecified; I10 Essential (primary) hypertension; I70.0 Atherosclerosis of aorta; I71.4 Abdominal aortic aneurysm, without rupture; E11.9 Type 2 diabetes mellitus without complications; K76.0 Fatty (change of) liver, not elsewhere classified; N30.90 Cystitis, unspecified without hematuria; M54.5 Low back pain; M46.06 Spinal enthesopathy, lumbar region; R35.0 Frequency of micturition; B96.20 Unspecified Escherichia coli [E. coli] as the cause of diseases classified elsewhere; R74.0 Nonspecific elevation of levels of transaminase and lactic acid dehydrogenase [LDH]; E78.5 Hyperlipidemia, unspecified; K80.20 Calculus of gallbladder without cholecystitis without obstruction; K57.90 Diverticulosis of intestine, part unspecified, without perforation or abscess without bleeding; K40.90 Unilateral inguinal hernia, without obstruction or gangrene, not specified as recurrent; Z87.440 Personal history of urinary (tract) infections
CPT/HCPCS: 36415; 36569; 71010; 74176; 76775; 76937; 80048; 80053; 80061; 80076; 81001; 82962; 83036; 83605; 83735; 84443; 84484; 85025; 85610; 85730; 87040; 87086; 93005; 96374; 96375; J0360; J0692; J1815; J1956; J3370; J7030; J7050

== ENCOUNTER 2018-12-06 15:50 | Inpatient (IN) | payer OTHER, MEDICAID ==
[~2018-12-06] VITALS: Ht 160 cm; Wt 91.8 kg
[~2018-12-06 15:50] MED LIST changes: +EZET10TA31 PO; +FESO8TAB ORAL; +FINA5TAB4 PO; +ICOS1CAP PO; -LISI10TA2 PO; +LOSA50TA14 ORAL; +MELO7.5T39 ORAL; +METO-319 PO; +MIRA50TA ORAL; +SITA50TA2 PO
[2018-12-06] MEDS ORDERED: morphine 4 MG/ML VIAL IV STA (18:03)
[2018-12-06] MEDS ORDERED: SOD CHLORIDE 0.9% 1,000 ML IV STA ×2 (18:03→22:06)
[2018-12-06] MEDS ORDERED: ONDANSETRON 4 MG INJ IV STA (18:03)
--- NOTE | 2018-12-06 18:06 | ERD ---
ER Documentation Chief Complaint Chief Complaint PT HAS AP , BLOATING AND VOMIT X 3 Days 01/16 HPI This 73-year-old male complains of nausea vomiting diarrhea for the past day and a half. No blood or bile in vomit and no blood in the stool. No melena. He says he feels abdominal distention but not having excessive gas. He does have a history of alcohol abuse in the past. No fever no chest pain or shortness of breath. Pain is diffuse and crampy with fullness ROS All systems reviewed and are negative except as per history of present illness. Medications Home Meds Reported Medications Fesoterodine Fumarate (Toviaz) 8 Mg Tab.sr.24h, 1 TAB ORAL QHS 11/16/18 Losartan Potassium* (Losartan Potassium*) 50 Mg Tablet, 1 TAB ORAL BID 11/16/18 Meloxicam (Mobic) 7.5 Mg Tablet, 1 TAB ORAL BID 11/16/18 Mirabegron (Myrbetriq) 50 Mg Tab.er.24h, 1 TAB ORAL DAILY 11/16/18 Icosapent Ethyl (VASCEPA) 1 Gm Capsule, 2 GM PO BID, CAP 03/18/17 Sitagliptin* (Januvia*) 50 Mg Tablet, 50 MG PO DAILY, #30 TAB 03/18/17 Ezetimibe* (Zetia*) 10 Mg Tablet, 10 MG PO DAILY, TAB 03/18/17 Finasteride* (Finasteride*) 5 Mg Tablet, 5 MG PO DAILY, TAB 03/18/17 Metoprolol Succinate* (Toprol XL*) 50 Mg Tab.er.24h, 50 MG PO QHS, #30 TAB 03/18/17 Tamsulosin Hcl* (Flomax*) 0.4 Mg Cap.sr.24h, 0.4 MG PO DAILY 04/13/11 Allergies Allergies: Coded Allergies: No Known Drug Allergy (Verified Allergy, Unknown, 12/06/18) PMhx/Soc History of Surgery: Yes (TURP) Anesthesia Reaction: No Hx Neurological Disorder: No Hx Respiratory Disorders: No Hx Cardiac Disorders: Yes (HTN, HIGH CHO) Hx Psychiatric Problems: No Hx Miscellaneous Medical Probl: No Hx Alcohol Use: Yes (QUIT 30 YEARS AGO- POSS HEP C) Hx Substance Use: No Hx Tobacco Use: Yes (QUIT 8 YEARS AGO) FmHx Family History: No coronary disease Physical Exam Vitals Vital Signs Date Temp Pulse Resp B/P (MAP) Pulse Ox O2 O2 Flow FiO2 Time Delivery Rate 12/06/18 98.7 113 18 167/99 98 16:05 (121) Physical Exam Const: Well-developed, well-nourished Head: Atraumatic, normocephalic Eyes: Normal Conjunctiva, PERRLA, EOMI, normal sclera, no nystagmus ENT: Normal External Ears, Nose and Mouth, moist mucus membranes. Neck: Full range of motion. No meningismus, no lymphadenopathy. Resp: Clear to auscultation bilaterally, no wheezing, rhonchi, rales Cardio: Regular rate and rhythm, no murmurs, S1 S2 present Abd: Soft, diffuse mild tenderness with distention, mild distended. Normal bowel sounds, no guarding or rebound, no pulsitile abdominal masses or bruits Skin: No petechiae or rashes, no ecchymosis , no maculopapular rash Back: No midline or flank tenderness Ext: No cyanosis, or edema, FROM x 4, normal inspection, n eurovascularly intact x 4 Neur: Awake and alert, STR 5/5 x 4, sensation intact x 4, no focal f indings, cerebellum intact Psych: Normal Mood and Affect Result Diagram: 12/06/18180912/06/181809 Results 24 hrs Laboratory Tests Test 12/06/18 18:10 White Blood Count 15.8 10^3/ul Red Blood Count 5.54 10^6/ul Hemoglobin 16.6 g/dl Hematocrit 48.3 % Mean Corpuscular Volume 87.2 fl Mean Corpuscular Hemoglobin 30.0 pg Mean Corpuscular Hemoglobin Concent 34.4 g/dl Red Cell Distribution Width 13.5 % Platelet Count 224 10^3/UL Mean Platelet Volume 11.1 fl Immature Granulocytes % 0.400 % Neutrophils % 86.8 % Lymphocytes % 8.2 % Monocytes % 3.9 % Eosinophils % 0.3 % Basophils % 0.4 % Nucleated Red Blood Cells % 0.0 /100WBC Immature Granulocytes # 0.060 10^3/ul Neutrophils # 13.7 10^3/ul Lymphocytes # 1.3 10^3/ul Monocytes # 0.6 10^3/ul Eosinophils # 0.1 10^3/ul Basophils # 0.1 10^3/ul Nucleated Red Blood Cells # 0.0 10^3/ul Sodium Level 146 mmol/L Potassium Level 3.9 mmol/L Chloride Level 106 mmol/L Carbon Dioxide Level 27 mmol/L Anion Gap 13 Blood Urea Nitrogen 23 mg/dl Creatinine 1.64 mg/dl Est Glomerular Filtrat Rate mL/min mL/min Glucose Level 132 mg/dl Calcium Level 10.6 mg/dl Total Bilirubin 0.4 mg/dl Direct Bilirubin 0.00 mg/dl Indirect Bilirubin 0.4 mg/dl Aspartate Amino Transf (AST/SGOT) 51 IU/L Alanine Aminotransferase (ALT/SGPT) 79 IU/L Alkaline Phosphatase 156 IU/L Total Protein 8.8 g/dl Albumin 4.7 g/dl Globulin 4.10 g/dl Albumin/Globulin Ratio 1.14 Lipase 117 U/L Current Medications Medications Dose Sig/Partha Start Time Status Last (Trade) Ordered Route PRN Stop Time Admin Dose Reason Admin Sodium 1,000 ml @ Q1H STAT 12/06/18 DC 12/06/18 Chloride 1,000 mls/hr IV 18:03 18:41 12/06/18 19:02 Morphine 4 mg ONCE STAT 12/06/18 DC 12/06/18 Sulfate IV 18:03 18:40 (morphine) 12/06/18 18:04 Ondansetron 4 mg ONCE STAT 12/06/18 DC 12/06/18 HCl (Zofran IV 18:03 18:40 Inj) 12/06/18 18:04 Procedures/MDM MR #: [id number] DOS: 12/06/18 1803 Ordering MD: EPI SALINAS DO Location: E/R Room/Bed: PROCEDURE: CT Abdomen and Pelvis Without Intravenous Contrast CLINICAL INDICATION: Abdominal pain. TECHNIQUE: Axial computed tomography images of the abdomen and pelvis without intravenous contrast. Sagittal and coronal reformatted images were created and reviewed. CTDIvol (mGy) = 20.28; total DLP (mGy-cm) = 1238.40. This CT exam was performed using one or more of the following dose reduction techniques: automated exposure control, adjustment of the mA and/or kV according to patient size, and/or use of iterative reconstruction technique. DICOM images are available. COMPARISON: None FINDINGS: LUNG BASES: Unremarkable. No mass. No consolidation. MEDIASTINUM: Small hiatal hernia noted. ABDOMEN: LIVER: Unremarkable. GALLBLADDER AND BILE DUCTS: Gallbladder is distended. Small calcified gallstones in the dependent portion. No gallbladder wall thickening. No pericholecystic fluid. No biliary dilatation. PANCREAS: Unremarkable. No ductal dilation. SPLEEN: Unremarkable. No splenomegaly. ADRENALS: Unremarkable. No mass. KIDNEYS AND URETERS: Multiple bilateral renal cysts, measuring up to 4.2 cm in diameter. No renal calculi. No hydronephrosis. Normal ureters. No obstructive uropathy. STOMACH AND BOWEL: Mild diverticulosis of the descending and sigmoid colon. No findings of acute diverticulitis. Severe distension of the stomach. The duodenum is empty. The remainder of the small bowel is moderately dilated, and contains air fluid levels. The distal loops of small bowel and empty, de compressed appearance. Findings are consistent with small bowel obstruction. No ischemia or perforation associated. PELVIS: APPENDIX: No findings to suggest acute appendicitis. BLADDER: Unremarkable. No stones. REPRODUCTIVE: Unremarkable as visualized. ABDOMEN and PELVIS: INTRAPERITONEAL SPACE: Unremarkable. No free air. No significant fluid collection. BONES/JOINTS: Degenerative spine changes are noted. No acute fracture. No dislocation. SOFT TISSUES: Small left inguinal hernia, containing only fat. VASCULATURE: The abdominal aorta is atherosclerotic. No aneurysm. LYMPH NODES: Unremarkable. No enlarged lymph nodes. IMPRESSION: 1. Gastric distension. Small bowel distension with air-fluid levels. Distal small bowel is decompressed/empty. Findings are consistent with small bowel obstruction. No ischemia or perforation. 2. Mild diverticulosis of the descending and sigmoid colon. No findings of acute diverticulitis. 3. Small left inguinal hernia, containing only fat. 4. Gallbladder is distended. Small calcified gallstones in the dependent portion. No gallbladder wall thickening. No pericholecystic fluid. No biliary dilatation. RPTAT: [facility] Jailene Alcantara Physician Band Aid Machine Operator Date Time Electronically viewed and signed by Jailene Alcantara Physician Band Aid Machine Operator on 12/06/2018 19:20 RmC/ CC: EPI SALINAS DO [id number] Patient has a small bowel obstruction we will place an NG tube. I spoke with general surgeon on-call Dr. Yee. Will admit panel Departure Diagnosis: Primary Impression: Small bowel obstruction Condition: Stable EPI SALINAS DO Dec 06, 2018 18:06
[2018-12-06] MEDS ORDERED: SOD CHLORIDE 0.9% 1,000 ML IV SCH (19:40)
[2018-12-06] MEDS ORDERED: ONDANSETRON 4 MG INJ IV PRN ×2 (20:00→20:30)
[2018-12-06] MEDS ORDERED: ACETAMINOPHEN 325 MG TAB PO PRN ×2 (20:00→20:30)
--- NOTE | 2018-12-06 20:18 | HP ---
Date/Time of Note Date/Time of Note DATE: 12/06/18 TIME: 20:18 Assessment/Plan VTE Prophylaxis SCD applied (from Nsg): Yes Pharmacological prophylaxis: NA/contraindicated Pharm contraindication: low risk/ambulating Lines/Catheters IV Catheter Type (from Nrsg): Saline Lock Assessment/Plan Hospital Course This is a 73-year-old male being admitted to the [facility] floor for: #1 small bowel obstruction: Etiology unclear, patient has a history of prostate surgery and umbilical hernia repair in the past. Nonetheless we will keep patient n.p.o., NG tube has been inserted. Connected to suction. IV fluid hydration with normal saline. Pain control. Dr. Yee general surgery is ready been consulted. #2 hypertension: PRN hydralazine, confirm home medications and resume once tolerating p.o. #3 diabetes mellitus: We will check hemoglobin A1c, resume home meds once able to tolerate p.o. #4 hyperlipidemia: Check lipid panel, resume statin once able to tolerate p.o. #5 BPH: Resume meds when patient is able to tolerate p.o., confirm home meds #6 obesity: We will check hemoglobin A1c, lipid panel, TSH #7 DVT GI prophylaxis: SCDs, no GI prophylaxis indicated Further treatment strategy will be implemented as per the clinical course Result Diagram: 12/06/18 1810 12/06/18 1810 Results 24hrs Laboratory Tests Test 12/06/18 18:10 White Blood Count 15.8 H Red Blood Count 5.54 # Hemoglobin 16.6 # Hematocrit 48.3 # Mean Corpuscular Volume 87.2 Mean Corpuscular Hemoglobin 30.0 Mean Corpuscular Hemoglobin Concent 34.4 Red Cell Distribution Width 13.5 Platelet Count 224 # Mean Platelet Volume 11.1 H Immature Granulocytes % 0.400 Neutrophils % 86.8 H Lymphocytes % 8.2 L Monocytes % 3.9 Eosinophils % 0.3 Basophils % 0.4 Nucleated Red Blood Cells % 0.0 Immature Granulocytes # 0.060 H Neutrophils # 13.7 H Lymphocytes # 1.3 Monocytes # 0.6 Eosinophils # 0.1 Basophils # 0.1 Nucleated Red Blood Cells # 0.0 Sodium Level 146 H Potassium Level 3.9 Chloride Level 106 Carbon Dioxide Level 27 Anion Gap 13 Blood Urea Nitrogen 23 H Creatinine 1.64 H Est Glomerular Filtrat Rate mL/min Glucose Level 132 Calcium Level 10.6 H Total Bilirubin 0.4 Direct Bilirubin 0.00 Indirect Bilirubin 0.4 Aspartate Amino Transf (AST/SGOT) 51 H Alanine Aminotransferase (ALT/SGPT) 79 H Alkaline Phosphatase 156 H Total Protein 8.8 H Albumin 4.7 Globulin 4.10 H Albumin/Globulin Ratio 1.14 Lipase 117 HPI/ROS Admit Date/Time Admit Date/Time Hx of Present Illness Chief complaint: Nausea vomiting, diarrhea This 73-year-old male complains of nausea vomiting for the past day and a half. No blood or bile in vomit and no blood in the stool. No melena. He says he feels abdominal distention but not having excessive gas. States that he has been having difficulty having a bowel movement and he did take medicines for this but it did not help. He does have a history of alcohol abuse in the past. No fever no chest pain or shortness of breath. Pain is diffuse and crampy with fullness. Allergies: NKDA Medications: See IDRIS GUTIERREZ Const: As per HPI Eyes : No pain discharge or redness or change in visual acuity ENT: No pain, sore throat, congestion, congestion, dysphagia or discharge Respiratory: No shortness of breath, cough, sputum, wheezing, or pleuritic pain Cardiovascular: No chest pain, palpitation, PND, or edema GI : As per HPI Genitourinary: No dysuria, hematuria, flank pain , discharge or CVA tenderness Musculoskeletal: No joint pain, back pain, neck pain, restricted range of motion in neck or joints Skin: No rash, bruising or hives Neuro: No headache, dizziness, syncope, seizure, focal weakness Endocrine: No polyuria, polydipsia, temperature intolerance Psych: No hallucination, depression, anxiety or suicidal ideation PMH/Family/Social Past Medical History Hypertension, diabetes, hyperlipidemia, BPH, Medications Current Medications Sodium Chloride 1,000 ml @ 80 mls/hr [id number] IV ; Start 12/06/18 at 19:40; Stop 12/07/18 at 08:09 Ondansetron HCl (Zofran Inj) 4 mg BRIDGE ORDER PRN IV NAUSEA/VOMITING; Start 12/06/18 at 20:00; Stop 12/07/18 at 19:59 Acetaminophen (Tylenol Tab) 650 mg ER BRIDGE PRN PO .MILD PAIN 1-3 OR TEMP; Start 12/06/18 at 20:00; Stop 12/07/18 at 19:59 Coded Allergies: No Known Drug Allergy (Verified Allergy, Unknown, 12/06/18) Past Surgical History Prostate surgery, umbilical hernia surgery Family History Significant Family History: hypertension Social History Alcohol Use: none Smoking Status: Never smoker Drug Use: none Exam/Review of Systems Vital Signs Vitals Vital Signs Date Temp Pulse Resp B/P (MAP) Pulse Ox O2 O2 Flow FiO2 Time Delivery Rate 12/06/18 98.7 113 18 167/99 98 16:05 (121) Exam Exam General: Patient is currently lying in bed he does not appear to be in any acute distress HEENT: Atraumatic, normocephalic. The pupils are equal, round and reactive. Extraocular motor are intact, NG tube in place connected to wall suction there is green bilious matter draining Neck: Supple with full range of motion. No rigidity or meningismus Chest: Nontender Lungs: Clear to auscultation bilaterally no crackles rales or wheezing Heart: Normal S1-S2, Regular rhythm and rate. No murmur, S3, or S4 Abdomen: Obese, soft , mildly distended, nontender, nondistended , bowel sounds are present. No guarding no rebound tenderness , No masses or organomegaly. No costovertebral temporal angle mass Extremities: Normal to inspection, no edema no cyanosis Neurologic: Normal mental status, speech normal, cranial nerves II through XII are intact, motor and sensory are intact, Additional Comments PROCEDURE: CT Abdomen and Pelvis Without Intravenous Contrast CLINICAL INDICATION: Abdominal pain. TECHNIQUE: Axial computed tomography images of the abdomen and pelvis without intravenous contrast. Sagittal and coronal reformatted images were created and reviewed. CTDIvol (mGy) = 20.28; total DLP (mGy-cm) = 1238.40. This CT exam was performed using one or more of the following dose reduction techniques: automated exposure control, adjustment of the mA and/or kV according to patient size, and/or use of iterative reconstruction technique. DICOM images are available. COMPARISON: None FINDINGS: LUNG BASES: Unremarkable. No mass. No consolidation. MEDIASTINUM: Small hiatal hernia noted. ABDOMEN: LIVER: Unremarkable. GALLBLADDER AND BILE DUCTS: Gallbladder is distended. Small calcified gallstones in the dependent portion. No gallbladder wall thickening. No pericholecystic fluid. No biliary dilatation. PANCREAS: Unremarkable. No ductal dilation. SPLEEN: Unremarkable. No splenomegaly. ADRENALS: Unremarkable. No mass. KIDNEYS AND URETERS: Multiple bilateral renal cysts, measuring up to 4.2 cm in diameter. No renal calculi. No hydronephrosis. Normal ureters. No obstructive uropathy. STOMACH AND BOWEL: Mild diverticulosis of the descending and sigmoid colon. No findings of acute diverticulitis. Severe distension of the stomach. The duodenum is empty. The remainder of the small bowel is moderately dilated, and contains air fluid levels. The distal loops of small bowel and empty, decompressed appearance. Findings are consistent with small bowel obstruction. No ischemia or perforation associated. PELVIS: APPENDIX: No findings to suggest acute appendicitis. BLADDER: Unremarkable. No stones. REPRODUCTIVE: Unremarkable as visualized. ABDOMEN and PELVIS: INTRAPERITONEAL SPACE: Unremarkable. No free air. No significant fluid collection. BONES/JOINTS: Degenerative spine changes are noted. No acute fracture. No dislocation. SOFT TISSUES: Small left inguinal hernia, containing only fat. VASCULATURE: The abdominal aorta is atherosclerotic. No aneurysm. LYMPH NODES: Unremarkable. No enlarged lymph nodes. IMPRESSION: 1. Gastric distension. Small bowel distension with air-fluid levels. Distal small bowel is decompressed/empty. Findings are consistent with small bowel obstruction. No ischemia or perforation. 2. Mild diverticulosis of the descending and sigmoid colon. No findings of acute diverticulitis. 3. Small left inguinal hernia, containing only fat. 4. Gallbladder is distended. Small calcified gallstones in the dependent portion. No gallbladder wall thickening. No pericholecystic fluid. No biliary dilatation. RPTAT: [facility] Jailene Alcantara, Physician Vocational Nurse Lvn Date Time Electronically viewed and signed by Jailene Alcantara Physician Vocational Nurse Lvn on 12/06/2018 19:20 OTILIA BESS Dec 06, 2018 20:18
[2018-12-06] MEDS ORDERED: morphine 2 MG INJ IV PRN (20:30)
[2018-12-06] MEDS ORDERED: BISACODYL (EC) 5 MG TAB PO PRN (20:30)
[2018-12-06] MEDS ORDERED: NACL 0.9% 3 ML SYG IV SCH (20:30)
[2018-12-06] MEDS ORDERED: DOCUSATE SODIUM 100 MG CAP PO PRN (20:30)
[2018-12-06] MEDS ORDERED: IOHEXOL 14.3 MG(I)/ML (ADULT) BTL PO ONE ×2 (22:00→22:30)
--- NOTE | 2018-12-06 22:06 | CONS ---
Assessment/Plan Assessment/Plan Assessment/Plan (Daily) Small bowel obstruction NG tube, IV fluids, n.p.o. Aggressive resuscitation Repeat CT tomorrow with oral contrast in am If does not resolve the next day or so, will likely need exploration Patient's only prior surgery is an umbilical hernia. Umbilical hernia is an unlikely cause for small bowel obstruction. Consultation Date/Type/Reason Admit Date/Time Date/Time of Note DATE: 12/06/18 TIME: 22:03 Hx of Present Illness The patient is a 73-year-old male with a patient. He is been having difficulty having a bowel movement. He is taken multiple pills to try to have a bowel movement. He has increasing abdominal distention. Over the last 2 days he has had nausea and emesis and presented to the ER. He denies fevers or chills. He has had some crampy abdominal pain.. No prior episodes. Past Medical History Medical History: diabetes, high cholesterol, hypertension, other (BPH) Home Meds Reported Medications Fesoterodine Fumarate (Toviaz) 8 Mg Tab.sr.24h, 1 TAB ORAL QHS 11/16/18 Losartan Potassium* (Losartan Potassium*) 50 Mg Tablet, 1 TAB ORAL BID 11/16/18 Meloxicam (Mobic) 7.5 Mg Tablet, 1 TAB ORAL BID 11/16/18 Mirabegron (Myrbetriq) 50 Mg Tab.er.24h, 1 TAB ORAL DAILY 11/16/18 Icosapent Ethyl (VASCEPA) 1 Gm Capsule, 2 GM PO BID, CAP 03/18/17 Sitagliptin* (Januvia*) 50 Mg Tablet, 50 MG PO DAILY, #30 TAB 03/18/17 Ezetimibe* (Zetia*) 10 Mg Tablet, 10 MG PO DAILY, TAB 03/18/17 Metoprolol Succinate* (Toprol XL*) 50 Mg Tab.er.24h, 50 MG PO QHS, #30 TAB 03/18/17 Tamsulosin Hcl* (Flomax*) 0.4 Mg Cap.sr.24h, 0.4 MG PO DAILY 04/13/11 Discontinued Reported Medications Finasteride* (Finasteride*) 5 Mg Tablet, 5 MG PO DAILY, TAB 03/18/17 Medications Current Medications Sodium Chloride 1,000 ml @ 80 mls/hr [id number] IV ; Start 12/06/18 at 20:14 IV Flush (NS 3 ml) 3 ml PER PROTOCOL IV ; Start 12/06/18 at 20:30 Ondansetron HCl (Zofran Inj) 4 mg Q6H PRN IV NAUSEA/VOMITING; Start 12/06/18 at 20:30 Acetaminophen (Tylenol Tab) 650 mg Q6H PRN PO .PAIN 1-3 OR TEMP; Start 12/06/18 at 20:30 Morphine Sulfate (morphine) 2 mg Q4H PRN IV .SEVERE PAIN 7-10; Start 12/06/18 at 20:30 Docusate Sodium (Colace) 100 mg Q12H PRN PO .CONSTIPATION; Start 12/06/18 at 20:30 Bisacodyl (Dulcolax) 5 mg DAILY PRN PO .CONSTIPATION; Start 12/06/18 at 20:30 Iohexol ((Gastrografin therapeutic equivalent)) Adult Formulation (Ple... GIVE PRIOR TO CT ONCE PO ; Start 12/06/18 at 22:00; Stop 12/06/18 at 22:01; Status UNV Allergies: Coded Allergies: No Known Drug Allergy (Verified Allergy, Unknown, 12/06/18) Past Surgical History Past Surgical Hx: other (Umbilical hernia repair and TURP) Social History Alcohol Use: none Smoking Status: Never smoker Drug Use: none Exam/Review of Systems Exam Vitals Vital Signs Date Temp Pulse Resp B/P (MAP) Pulse Ox O2 O2 Flow FiO2 Time Delivery Rate 12/06/18 98.7 113 18 167/99 98 16:05 (121) Constitutional: alert, oriented Psych: no complaints Head: normocephalic Eyes: nl conjunctiva, nl lids Neck: supple Respiratory: clear to auscultation Cardiovascular: nl pulses, other (Tachycardic) Gastrointestinal: soft, other (Distended moderately, nontender) Extremities: normal pulses Neurological: ELECTRON TUBE ASSEMBLER II-XII intact, nl mental status Results Result Diagram: 12/06/18180912/06/180 Results 24hrs Laboratory Tests Test 12/06/18 18:10 White Blood Count 15.8 H Red Blood Count 5.54 # Hemoglobin 16.6 # Hematocrit 48.3 # Mean Corpuscular Volume 87.2 Mean Corpuscular Hemoglobin 30.0 Mean Corpuscular Hemoglobin Concent 34.4 Red Cell Distribution Width 13.5 Platelet Count 224 # Mean Platelet Volume 11.1 H Immature Granulocytes % 0.400 Neutrophils % 86.8 H Lymphocytes % 8.2 L Monocytes % 3.9 Eosinophils % 0.3 Basophils % 0.4 Nucleated Red Blood Cells % 0.0 Immature Granulocytes # 0.060 H Neutrophils # 13.7 H Lymphocytes # 1.3 Monocytes # 0.6 Eosinophils # 0.1 Basophils # 0.1 Nucleated Red Blood Cells # 0.0 Sodium Level 146 H Potassium Level 3.9 Chloride Level 106 Carbon Dioxide Level 27 Anion Gap 13 Blood Urea Nitrogen 23 H Creatinine 1.64 H Est Glomerular Filtrat Rate mL/min Glucose Level 132 Calcium Level 10.6 H Total Bilirubin 0.4 Direct Bilirubin 0.00 Indirect Bilirubin 0.4 Aspartate Amino Transf (AST/SGOT) 51 H Alanine Aminotransferase (ALT/SGPT) 79 H Alkaline Phosphatase 156 H Total Protein 8.8 H Albumin 4.7 Globulin 4.10 H Albumin/Globulin Ratio 1.14 Lipase 117 Imaging Imaging Patient: DONAVON BORDEN : 1945 Age: 73 Sex: M MR #: [id number] DOS: 12/06/18 1803 Ordering MD: EPI SALINAS DO Location: E/R Room/Bed: PROCEDURE: CT Abdomen and Pelvis Without Intravenous Contrast CLINICAL INDICATION: Abdominal pain. TECHNIQUE: Axial computed tomography images of the abdomen and pelvis without intravenous contrast. Sagittal and coronal reformatted images were created and reviewed. CTDIvol (mGy) = 20.28; total DLP (mGy-cm) = 1238.40. This CT exam was performed using one or more of the following dose reduction techniques: automated exposure control, adjustment of the mA and/or kV according to patient size, and/or use of iterative reconstruction technique. DICOM images are available. COMPARISON: None FINDINGS: LUNG BASES: Unremarkable. No mass. No consolidation. MEDIASTINUM: Small hiatal hernia noted. ABDOMEN: LIVER: Unremarkable. GALLBLADDER AND BILE DUCTS: Gallbladder is distended. Small calcified gallstones in the dependent portion. No gallbladder wall thickening. No pericholecystic fluid. No biliary dilatation. PANCREAS: Unremarkable. No ductal dilation. SPLEEN: Unremarkable. No splenomegaly. ADRENALS: Unremarkable. No mass. KIDNEYS AND URETERS: Multiple bilateral renal cysts, measuring up to 4.2 cm in diameter. No renal calculi. No hydronephrosis. Normal ureters. No obstructive uropathy. STOMACH AND BOWEL: Mild diverticulosis of the descending and sigmoid colon. No findings of acute diverticulitis. Severe distension of the stomach. The duodenum is empty. The remainder of the small bowel is moderately dilated, and contains air fluid levels. The distal loops of small bowel and empty, decompressed appearance. Findings are consistent with small bowel obstruction. No ischemia or perforation associated. PELVIS: APPENDIX: No findings to suggest acute appendicitis. BLADDER: Unremarkable. No stones. REPRODUCTIVE: Unremarkable as visualized. ABDOMEN and PELVIS: INTRAPERITONEAL SPACE: Unremarkable. No free air. No significant fluid collection. BONES/JOINTS: Degenerative spine changes are noted. No acute fracture. No dislocation. SOFT TISSUES: Small left inguinal hernia, containing only fat. VASCULATURE: The abdominal aorta is atherosclerotic. No aneurysm. LYMPH NODES: Unremarkable. No enlarged lymph nodes. IMPRESSION: 1. Gastric distension. Small bowel distension with air-fluid levels. Distal small bowel is decompressed/empty. Findings are consistent with small bowel ob struction. No ischemia or perforation. 2. Mild diverticulosis of the descending and sigmoid colon. No findings of acute diverticulitis. 3. Small left inguinal hernia, containing only fat. 4. Gallbladder is distended. Small calcified gallstones in the dependent portion. No gallbladder wall thickening. No pericholecystic fluid. No biliary dilatation. RPTAT: [facility] Jailene Alcantara Physician Coal Screener Date Time Electronically viewed and signed by Jailene Alcantara Physician Coal Screener on 12/06/2018 19:20 RmC/ CC: EPI SALINAS DO Medications Medication Current Medications Sodium Chloride 1,000 ml @ 80 mls/hr [id number] IV ; Start 12/06/18 at 20:14 IV Flush (NS 3 ml) 3 ml PER PROTOCOL IV ; Start 12/06/18 at 20:30 Ondansetron HCl (Zofran Inj) 4 mg Q6H PRN IV NAUSEA/VOMITING; Start 12/06/18 at 20:30 Acetaminophen (Tylenol Tab) 650 mg Q6H PRN PO .PAIN 1-3 OR TEMP; Start 12/06/18 at 20:30 Morphine Sulfate (morphine) 2 mg Q4H PRN IV .SEVERE PAIN 7-10; Start 12/06/18 at 20:30 Docusate Sodium (Colace) 100 mg Q12H PRN PO .CONSTIPATION; Start 12/06/18 at 20:30 Bisacodyl (Dulcolax) 5 mg DAILY PRN PO .CONSTIPATION; Start 12/06/18 at 20:30 Iohexol ((Gastrografin therapeutic equivalent)) Adult Formulation (Ple... GIVE PRIOR TO CT ONCE PO ; Start 12/06/18 at 22:00; Stop 12/06/18 at 22:01; Status UNV RICH BRITO MD Dec 06, 2018 22:06
[2018-12-07 00:30] VITALS: BP 134/84; PULSE 110; RESP 18
[2018-12-07 01:00] VITALS: Ht 160 cm; Wt 91.8 kg
[2018-12-07] MEDS: SOD CHLORIDE 0.9% 1,000 ML IV SCH ×3 (01:52→13:40)
[2018-12-07 02:00] VITALS: BP 136/75; PULSE 101; RESP 18
[2018-12-07] MEDS ORDERED: IOHEXOL 14.3 MG(I)/ML (ADULT) BTL PO ONE (08:00)
[2018-12-07 08:29] VITALS: BP 142/77; PULSE 79; RESP 18
[2018-12-07] MEDS ORDERED: hydrALAzine 20 MG INJ IV PRN (09:00)
--- NOTE | 2018-12-07 14:17 | PN ---
Date/Time of Note Date/Time of Note DATE: 12/07/18 TIME: 14:16 Assessment/Plan VTE Prophylaxis Risk score (from Ns)>0 risk: 5 SCD applied (from Ns): Yes Pharmacological prophylaxis: NA/contraindicated Pharm contraindication: surgical contra Lines/Catheters IV [facility] Saline Lock Assessment/Plan Hospital Course SUBJECTIVE: Denies any abdominal pain. OBJECTIVE: Physical Exam General: Obese, 73-year-old male lying in bed in no apparent distress. HEENT: Normocephalic, atraumatic. Eyes: Anicteric sclerae, conjunctivae clear. ENT: Nasal septum midline, oral mucosa moist. Neck supple, no JVD noticed. Respiratory: Bilaterally clear breath sounds. No use of accessory muscles of respiration. No adventitious breath sounds. Cardiovascular: S1, S2 heard. Regular rate and rhythm Abdomen: Soft, nontender, and nondistended. Bowel sounds positive in all 4 quadrants. Genitourinary: Deferred. Extremities: No cyanosis, no clubbing, no edema. Peripheral pulses palpable. Neurologic: Cranial nerves II through XII grossly intact. The patient is awake, alert, and oriented. Skin: Normal skin turgor. No skin rashes. Labs & Vitals per chart ASSESSMENT & PLAN 73-year-old male with comorbidities including hypertension, dyslipidemia, and prostate hypertrophy, who came to the emergency room with chief complaint of bloating and vomiting with abdominal pain with CT scan showing findings consistent with small bowel obstruction. The patient was admitted to inpatient setting for further treatment and evaluation. 1. Abdominal pain with CT suggesting small bowel obstruction -On NGT decompression. -General surgery following. -Discontinuation of NGT as per general surgery. 2. Hypertension. -Continue PRN antihypertensives. 3. Acute kidney injury. -Probably secondary to prerenal causes from underlying dehydration. -Monitor BUN and creatinine closely. -Avoid nephrotoxic medications. 4. Diabetes mellitus type 2. -Hemoglobin A1c 5.7. -Resume DPP4 inhibitors once able to tolerate oral intake. 5. Prostate hypertrophy. -Resume tamsulosin once able to tolerate oral intake. 6. Obesity. -BMI 36 kg/m. -Weight reduction will be advised. 7. Dyslipidemia. -Resume antilipemics once able to tolerate oral intake. 8. Fluids, electrolytes, and nutrition. -N.p.o. -Continue IV fluids. 9. DVT prophylaxis. -B/L SCDs. 10. Plan. -Continue NGT decompression. -Await further surgical recommendations The patient was seen in collaboration with Dr. Goodrich. Result Diagram: 12/07/18 0554 12/07/18 0554 Results 24hrs Laboratory Tests Test 12/06/18 18:10 12/06/18 22:16 12/07/18 05:54 White Blood Count 15.8 H 10.9 #H Red Blood Count 5.54 # 4.52 L Hemoglobin 16.6 # 13.5 L Hematocrit 48.3 # 39.8 L Mean Corpuscular Volume 87.2 88.1 Mean Corpuscular Hemoglobin 30.0 29.9 Mean Corpuscular Hemoglobin Concent 34.4 33.9 Red Cell Distribution Width 13.5 13.4 Platelet Count 224 # 188 Mean Platelet Volume 11.1 H 11.5 H Immature Granulocytes % 0.400 0.300 Neutrophils % 86.8 H 75.1 Lymphocytes % 8.2 L 17.0 Monocytes % 3.9 7.1 Eosinophils % 0.3 0.2 Basophils % 0.4 0.3 Nucleated Red Blood Cells % 0.0 0.0 Immature Granulocytes # 0.060 H 0.030 Neutrophils # 13.7 H 8.2 H Lymphocytes # 1.3 1.9 Monocytes # 0.6 0.8 Eosinophils # 0.1 0.0 Basophils # 0.1 0.0 Nucleated Red Blood Cells # 0.0 0.0 Sodium Level 146 H 145 H Potassium Level 3.9 3.9 Chloride Level 106 113 H Carbon Dioxide Level 27 25 Anion Gap 13 7 Blood Urea Nitrogen 23 H 23 H Creatinine 1.64 H 1.40 H Est Glomerular Filtrat Rate mL/min Glucose Level 132 96 Calcium Level 10.6 H 8.5 Total Bilirubin 0.4 0.4 Direct Bilirubin 0.00 0.00 Indirect Bilirubin 0.4 0.4 Aspartate Amino Transf (AST/SGOT) 51 H 39 Alanine Aminotransferase (ALT/SGPT) 79 H 63 Alkaline Phosphatase 156 H 96 Total Protein 8.8 H 6.3 # Albumin 4.7 3.5 # Globulin 4.10 H 2.80 Albumin/Globulin Ratio 1.14 1.25 Lipase 117 POC Venous Lactate 1.3 Hemoglobin A1c 5.7 Magnesium Level 1.9 Triglycerides Level 187 H Cholesterol Level 124 LDL Cholesterol, Calculated 67 HDL Cholesterol 20 L Cholesterol/HDL Ratio 6.2 Thyroid Stimulating Hormone (TSH) 3.190 Exam/Review of Systems Exam Vitals Vital Signs Date Temp Pulse Resp B/P (MAP) Pulse Ox O2 O2 Flow FiO2 Time Delivery Rate 12/07/18 98.2 79 18 142/77 95 08:29 (98) 12/07/18 Room Air 00:28 Intake and Output 12/06/18 12/06/18 12/07/18 1515:00 23:00 07:00 IntakeIntake Total 240 ml OutputOutput Total 300 ml BalanceBalance -60 ml Results Results 24hrs Laboratory Tests Test 12/06/18 18:10 12/06/18 22:16 12/07/18 05:54 White Blood Count 15.8 H 10.9 #H Red Blood Count 5.54 # 4.52 L Hemoglobin 16.6 # 13.5 L Hematocrit 48.3 # 39.8 L Mean Corpuscular Volume 87.2 88.1 Mean Corpuscular Hemoglobin 30.0 29.9 Mean Corpuscular Hemoglobin Concent 34.4 33.9 Red Cell Distribution Width 13.5 13.4 Platelet Count 224 # 188 Mean Platelet Volume 11.1 H 11.5 H Immature Granulocytes % 0.400 0.300 Neutrophils % 86.8 H 75.1 Lymphocytes % 8.2 L 17.0 Monocytes % 3.9 7.1 Eosinophils % 0.3 0.2 Basophils % 0.4 0.3 Nucleated Red Blood Cells % 0.0 0.0 Immature Granulocytes # 0.060 H 0.030 Neutrophils # 13.7 H 8.2 H Lymphocytes # 1.3 1.9 Monocytes # 0.6 0.8 Eosinophils # 0.1 0.0 Basophils # 0.1 0.0 Nucleated Red Blood Cells # 0.0 0.0 Sodium Level 146 H 145 H Potassium Level 3.9 3.9 Chloride Level 106 113 H Carbon Dioxide Level 27 25 Anion Gap 13 7 Blood Urea Nitrogen 23 H 23 H Creatinine 1.64 H 1.40 H Est Glomerular Filtrat Rate mL/min Glucose Level 132 96 Calcium Level 10.6 H 8.5 Total Bilirubin 0.4 0.4 Direct Bilirubin 0.00 0.00 Indirect Bilirubin 0.4 0.4 Aspartate Amino Transf (AST/SGOT) 51 H 39 Alanine Aminotransferase (ALT/SGPT) 79 H 63 Alkaline Phosphatase 156 H 96 Total Protein 8.8 H 6.3 # Albumin 4.7 3.5 # Globulin 4.10 H 2.80 Albumin/Globulin Ratio 1.14 1.25 Lipase 117 POC Venous Lactate 1.3 Hemoglobin A1c 5.7 Magnesium Level 1.9 Triglycerides Level 187 H Cholesterol Level 124 LDL Cholesterol, Calculated 67 HDL Cholesterol 20 L Cholesterol/HDL Ratio 6.2 Thyroid Stimulating Hormone (TSH) 3.190 Medications Medication Current Medications Sodium Chloride 1,000 ml @ 80 mls/hr [id number] IV Last administered on 12/07/18at 13:40; Admin Dose 80 MLS/HR; Start 12/06/18 at 20:14 IV Flush (NS 3 ml) 3 ml PER PROTOCOL IV ; Start 12/06/18 at 20:30 Ondansetron HCl (Zofran Inj) 4 mg Q6H PRN IV NAUSEA/VOMITING; Start 12/06/18 at 20:30 Acetaminophen (Tylenol Tab) 650 mg Q6H PRN PO .PAIN 1-3 OR TEMP; Start 12/06/18 at 20:30 Morphine Sulfate (morphine) 2 mg Q4H PRN IV .SEVERE PAIN 7-10; Start 12/06/18 at 20:30 Docusate Sodium (Colace) 100 mg Q12H PRN PO .CONSTIPATION; Start 12/06/18 at 20:30 Bisacodyl (Dulcolax) 5 mg DAILY PRN PO .CONSTIPATION; Start 12/06/18 at 20:30 Hydralazine HCl (Apresoline) 10 mg Q4H PRN IV ELEVATED BLOOD PRESSURE; Start 12/07/18 at 09:00 FREEDOM HENDERSON NP December 07, 2018 14:17
[2018-12-07 15:18] VITALS: BP 146/73; PULSE 77; RESP 19
[2018-12-07 20:00] VITALS: BP 154/72; PULSE 69; RESP 18
--- NOTE | 2018-12-07 20:58 | PN ---
Date/Time of Note Date/Time of Note DATE: 12/07/18 TIME: 20:57 Assessment/Plan Lines/Catheters IV Catheter Type (from Nrs): Saline Lock Assessment/Plan Assessment/Plan Hospital day #1 Resolved SBO Clamp NG tube in a.m. Clears in a.m. Subjective 24 Hr Interval Summary Constitutional: no complaints, improved, flatus Feeding: NPO Pain Control: well controlled Exam/Review of Systems Vital Signs Vitals Vital Signs Date Temp Pulse Resp B/P (MAP) Pulse Ox O2 O2 Flow FiO2 Time Delivery Rate 12/07/18 98.1 69 18 154/72 93 20:00 (99) 12/07/18 Room Air 00:28 Intake and Output 12/06/18 12/06/18 12/07/18 1515:00 23:00 07:00 IntakeIntake Total 240 ml OutputOutput Total 300 ml BalanceBalance -60 ml Exam Constitutional: alert, oriented, well developed Respiratory: clear to auscultation Cardiovascular: regular rate and rhythm Gastrointestinal: soft, non-tender, other (Nondistended ) Results Free Text/Dictation Patient: DONAVON BORDEN : 1945 Age: 73 Sex: M MR #: [id number] DOS: 12/07/18 0000 Ordering MD: RICH BRITO MD Location: [facility] Room/Bed: [facility] PROCEDURE: CT Abdomen and Pelvis without contrast. CLINICAL INDICATION: Abdominal pain, bowel obstruction TECHNIQUE: CT of the abdomen and pelvis without IV contrast. Oral contrast was given. Coronal and sagittal reformatted images. DICOM images are available. One or more of the following dose reduction techniques were used: automated exposure control, adjustment of the mA and/or kV according to patient size, use of it erative reconstruction technique. CTDI 19.4 mGy, DLP 1173 mGy-cm. COMPARISON: CT 12/06/2018 FINDINGS: Lower thorax: Coronary arterial calcifications. Liver: Mild steatosis. Biliary: Cholelithiasis, without evidence for cholecystitis. No biliary dilatation. Pancreas: Normal Spleen: Normal Adrenal glands: Normal Genitourinary: Tiny nonobstructive right renal calculus, without ureterolithiasis or obstructive uropathy. Bilateral benign appearing renal cysts. Unremarkable urinary bladder. Vascular: No abdominal aortic aneurysm. Aortoiliac atherosclerotic calcifications. Lymph nodes: No lymphadenopathy. Gastrointestinal: No bowel obstruction. Normal appendix. Colonic diverticulosis, without diverticulitis. No evidence of colitis. Gastrostomy tube tip is in the stomach. Peritoneum: No free air, free fluid or abscess. Mild fat-containing left inguinal hernia. Reproductive organs: Mildly enlarged prostate. Musculoskeletal: Degenerative enthesopathy of the spine. IMPRESSION: 1. There has been interval placement of a nasogastric tube, with resolution of previously seen distended stomach and small bowel. No evidence of bowel obstruction, perforation, or abscess is identified. 2. Coronary arterial and aortoiliac atherosclerotic calcifications. 3. Cholelithiasis, without cholecystitis. 4. Mild hepatic steatosis. 5. Tiny nonobstructive right renal calculus, without ureterolithiasis or obstructive uropathy. 6. Colonic diverticulosis, without diverticulitis. 7. Mild fat-containing left inguinal hernia, without incarceration. 8. Mildly enlarged prostate. RPTAT: AAOO .Hawk Hunt MD, MD Date Time Electronically viewed and signed by .Hawk Hunt MD, MD on 12/07/2018 13:01 .R/ Result Diagram: 12/07/18 0554 12/07/18 0554 RICH BRITO MD December 07, 2018 20:58
[2018-12-08 02:00] VITALS: BP 156/76; PULSE 67; RESP 18
[2018-12-08] MEDS: SOD CHLORIDE 0.9% 1,000 ML IV SCH (04:40)
[2018-12-08 08:00] VITALS: BP 169/82; PULSE 79; RESP 18
[2018-12-08 14:20] VITALS: BP 140/89; PULSE 82; RESP 18
--- NOTE | 2018-12-08 15:00 | PDOCDIS ---
Discharge Instructions CONDITION [id number] Patient Condition: [id number] Stable HOME CARE INSTRUCTIONS: [id number] Diet Instructions: [id number] Low Fat /Cholesterol [id number] Special Diet: [id number] Low carbohydrate OTHER ORDERS: Other Orders: 1. Resume home medications. Stop taking Mobic and other NSAIDs (Aspirin, ibuprofen, naproxen, etc.) as these can make your kidney function worse. 2. Follow a low carbohydrate, low-cholesterol diet. 3. Resume activities as tolerated. 4. Follow-up with your primary care physician in 2 weeks. 5. Please go to the nearest emergency room if you have any significant abdominal pain, persistent nausea/vomiting, or any other unusual signs/symptoms. FREEDOM HENDERSON NP December 08, 2018 15:00
--- NOTE | 2018-12-08 15:06 | DS ---
Date/Time of Note Date/Time of Note DATE: 12/08/18 TIME: 15:00 Discharge Summary Admission/Discharge Info Admit Date/Time Dec 06, 2018 at 19:40 Discharge Date/Time Discharge Diagnosis 1. Abdominal pain with CT suggesting small bowel obstruction. Resolved. 2. Hypertension. 3. Acute kidney injury. 4. Diabetes mellitus type 2. Hemoglobin A1c 5.7. 5. Prostate hypertrophy. 6. Obesity. BMI 36 kg/m. 7. Dyslipidemia. Patient Condition: Stable Consults 1. Romeo Yee MD, General Surgery. Procedures CT Abdomen & Pelvis on 12/06/2018 IMPRESSION: 1. Gastric distension. Small bowel distension with air-fluid levels. Distal small bowel is decompressed/empty. Findings are consistent with small bowel obstruction. No ischemia or perforation. 2. Mild diverticulosis of the descending and sigmoid colon. No findings of acu te diverticulitis. 3. Small left inguinal hernia, containing only fat. 4. Gallbladder is distended. Small calcified gallstones in the dependent portion. No gallbladder wall thickening. No pericholecystic fluid. No biliary dilatation. CT Abdomen & Pelvis on 12/07/2018 IMPRESSION: 1. There has been interval placement of a nasogastric tube, with resolution of previously seen distended stomach and small bowel. No evidence of bowel obstruction, perforation, or abscess is identified. 2. Coronary arterial and aortoiliac atherosclerotic calcifications. 3. Cholelithiasis, without cholecystitis. 4. Mild hepatic steatosis. 5. Tiny nonobstructive right renal calculus, without ureterolithiasis or obstructive uropathy. 6. Colonic diverticulosis, without diverticulitis. 7. Mild fat-containing left inguinal hernia, without incarceration. 8. Mildly enlarged prostate. Hx of Present Illness This is a 73-year-old male with comorbidities including hypertension, dyslipidemia, and prostate hypertrophy, who came to the emergency room with chief complaint of bloating and vomiting with abdominal pain with CT scan showing findings consistent with small bowel obstruction. The patient was admitted to inpatient setting for further treatment and evaluation. Hospital Course The patient was started on NGT decompression. The patient was kept n.p.o. He was maintained on IV fluids. The patient underwent a repeat CT scan of the abdomen and pelvis that was negative for any evidence of small bowel obstruction. The patient also underwent a KUB on 12-08-2018 and that was negative for any obstructive bowel pattern. The patient responded well to conservative therapy with NGT decompression. The patient was started on a clear liquid diet and the patient's diet was advanced as tolerated to regular consistency diet without any significant gastrointestinal symptoms. The patient started passing gas. The patient was cleared by general surgery to be discharged home. The patient's chronic problems include essential hypertension. He was maintained on PRN IV antihypertensives for any underlying high blood pressure. The patient was also noticed to have acute nonoliguric kidney injury. The patient's PEPPER could be secondary to multiple causes including prerenal causes (dehydration) and also the combination with nephrotoxic drugs. The patient's nephrotoxic drugs were held. Upon discharge, the patient will be resumed on ARB's and he was instructed to avoid taking NSAIDs, provided he will follow-up with his primary care physician in the near future. The patient has underlying prostate hypertrophy. The patient will be resumed on tamsulosin upon discharge. The patient also has a history of dyslipidemia. The patient's fasting lipid panel was satisfactory. Patient will be resumed on his ACT night upon discharge. Patient has history of diabetes mellitus type 2. The patient's A1c was found to be 5.7 indicating good blood glucose control over the past few weeks. The patient was maintained off any sliding scale insulin since the patient had very good glycemic trends. Upon discharge, he will be resumed on DPP4 inhibitors. The patient had a stable hospital course. The patient was cleared by general surgery to be discharged home. Discharge Instructions 1. Resume home medications. Stop taking Mobic and other NSAIDs (Aspirin, ibuprofen, naproxen, etc.) as these can make your kidney function worse. 2. Follow a low carbohydrate, low-cholesterol diet. 3. Resume activities as tolerated. 4. Follow-up with your primary care physician in 2 weeks. 5. Please go to the nearest emergency room if you have any significant abdominal pain, persistent nausea/vomiting, or any other unusual signs/symptoms. The patient verbalized understanding of the discharge instructions. At this time I would like to thank Dr. Yee for seeing the patient and providing clinical recommendations. The patient was seen in collaboration with Dr. Goodrich. Home Meds Active Scripts [Work Note] No Conflict Check This is to certify that the patient was admitted to [facility] from 12/06/2018 to 12/08/2018. He can return back to work on 12/12/2018 with no restrictions. 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 Reported Medications Fesoterodine Fumarate (Toviaz) 8 Mg Tab.sr.24h, 1 TAB ORAL QHS 11/16/18 Losartan Potassium* (Losartan Potassium*) 50 Mg Tablet, 1 TAB ORAL BID 11/16/18 Mirabegron (Myrbetriq) 50 Mg Tab.er.24h, 1 TAB ORAL DAILY 11/16/18 Icosapent Ethyl (VASCEPA) 1 Gm Capsule, 2 GM PO BID, CAP 03/18/17 Sitagliptin* (Januvia*) 50 Mg Tablet, 50 MG PO DAILY, #30 TAB 03/18/17 Ezetimibe* (Zetia*) 10 Mg Tablet, 10 MG PO DAILY, TAB 03/18/17 Metoprolol Succinate* (Toprol XL*) 50 Mg Tab.er.24h, 50 MG PO QHS, #30 TAB 03/18/17 Tamsulosin Hcl* (Flomax*) 0.4 Mg Cap.sr.24h, 0.4 MG PO DAILY 04/13/11 Discontinued Reported Medications Meloxicam (Mobic) 7.5 Mg Tablet, 1 TAB ORAL BID 11/16/18 Finasteride* (Finasteride*) 5 Mg Tablet, 5 MG PO DAILY, TAB 03/18/17 Follow-up Plan Patient to follow-up with his primary care physician in 1 to 2 weeks. Primary Care Provider Not On Staff Doctor Time spent on discharge: > 30 minutes Pending Labs Laboratory Tests Test 12/08/18 04:58 White Blood Count 9.1 10^3/ul (4.8-10.8) Red Blood Count 4.57 10^6/ul (4.70-6.10) Hemoglobin 13.6 g/dl (14.0-18.0) Hematocrit 40.7 % (42.0-52.0) Mean Corpuscular Volume 89.1 fl (82.0-101.0) Mean Corpuscular Hemoglobin 29.8 pg (29.0-33.0) Mean Corpuscular Hemoglobin Concent 33.4 g/dl (32.0-37.0) Red Cell Distribution Width 13.4 % (11.5-14.5) Platelet Count 181 10^3/UL (140-415) Mean Platelet Volume 11.2 fl (7.4-10.4) Immature Granulocytes % 0.200 % (0.001-0.429) Neutrophils % 71.1 % (39.0-77.0) Lymphocytes % 19.1 % (15.0-51.0) Monocytes % 5.9 % (0.0-11.0) Eosinophils % 3.1 % (0.0-7.0) Basophils % 0.6 % (0.0-2.0) Nucleated Red Blood Cells % 0.0 /100WBC (0.0-0.0) Immature Granulocytes # 0.020 10^3/ul (0.0-0.031) Neutrophils # 6.5 10^3/ul (1.6-7.5) Lymphocytes # 1.7 10^3/ul (0.8-2.9) Monocytes # 0.5 10^3/ul (0.3-0.9) Eosinophils # 0.3 10^3/ul (0.0-0.5) Basophils # 0.1 10^3/ul (0.0-0.1) Nucleated Red Blood Cells # 0.0 10^3/ul (0.0-0.0) Sodium Level 144 mmol/L (135-144) Potassium Level 4.2 mmol/L (3.5-5.1) Chloride Level 111 mmol/L (97-110) Carbon Dioxide Level 25 mmol/L (21-31) Anion Gap 8 (5-13) Blood Urea Nitrogen 18 mg/dl (7-20) Creatinine 1.26 mg/dl (0.61-1.24) Est Glomerular Filtrat Rate mL/min mL/min (>60) Glucose Level 74 mg/dl (70-220) Calcium Level 9.3 mg/dl (8.4-10.2) Phosphorus Level 3.7 mg/dl (2.5-4.9) Magnesium Level 2.0 mg/dl (1.7-2.5) Total Bilirubin 0.4 mg/dl (0.2-1.3) Direct Bilirubin 0.00 mg/dl (0.00-0.20) Indirect Bilirubin 0.4 mg/dl (0-1.1) Aspartate Amino Transf (AST/SGOT) 51 IU/L (15-46) Alanine Aminotransferase (ALT/SGPT) 59 IU/L (13-69) Alkaline Phosphatase 98 IU/L (42-121) Total Protein 6.4 g/dl (6.1-8.1) Albumin 3.5 g/dl (3.3-4.9) Globulin 2.90 g/dl (1.3-3.2) Albumin/Globulin Ratio 1.20 FREEDOM HENDERSON NP December 08, 2018 15:06
[2018-12-08] MEDS ORDERED: Work Note (15:32)
== END 2018-12-08 15:53 | disposition home or self-care (01) | DRG 389 ==
LOC: E/R 15:50 → PP2 19:40
PROVIDERS: ADMIT Family Medicine; ATTEND Family Medicine
DX: K56.609 Unspecified intestinal obstruction, unspecified as to partial versus complete obstruction (principal); N17.9 Acute kidney failure, unspecified; E86.0 Dehydration; E11.9 Type 2 diabetes mellitus without complications; I10 Essential (primary) hypertension; N40.0 Benign prostatic hyperplasia without lower urinary tract symptoms; E78.5 Hyperlipidemia, unspecified; E66.9 Obesity, unspecified; Z68.36 Body mass index [BMI] 36.0-36.9, adult; Z79.84 Long term (current) use of oral hypoglycemic drugs; Z87.891 Personal history of nicotine dependence
CPT/HCPCS: 36415; 74019; 74176; 80053; 80061; 83036; 83605; 83690; 83735; 84100; 84443; 85025; 96374; 96375; J2270; J2405; J7030; Q9967